=== PATIENT | female | born 1985 | race Caucasian/White ===

== ENCOUNTER 2022-12-28 08:24 | Outpatient (CLI) | payer OTHER, SELFPAY ==
[2022-12-28 15:46] LABS: Basophils Absolute Auto 0.04 K/uL (0.00-0.30); Basophils Percent Auto 0.4 % (0.0-3.0); Eosinophils Absolute Auto 0.29 K/uL (0.00-0.50); Hematocrit 42.6 % (33.0-51.0); Hemoglobin* 14.2 gm/dL (12.0-16.0); Immature Granulocytes Abs Auto 0.04 K/uL (0.00-0.30); Immature Granulocytes Pct Auto 0.4 %; Lymphocytes Absolute Auto 2.93 K/uL (0.90-2.90); Lymphocytes Percent Auto 30.1 % (20-44); Mean Corpuscular HGB Conc 33 gm/dL (32-36); Mean Corpuscular Hemoglobin 30 pg (26-34); Mean Corpuscular Volume 89 fL (80-100); Monocytes Percent Auto 6.2 % (0.0-11.0); Neutrophils Absolute Auto 5.83 K/uL (1.7-7.0); Neutrophils Percent Auto 59.9 % (42.0-72.0); Platelet Count* 432 K/uL (140-440); Red Blood Count 4.78 m/uL (4.00-5.20); White Blood Count* 9.73 K/uL (4.50-11.00)
[2022-12-28 15:56] LABS: Slide Review Reflex No
[2022-12-28 15:58] LABS: Glucose* 88 mg/dL (60-115)
[2022-12-28 15:59] LABS: HCG Qualitative Serum* Negative (Negative)
[2022-12-28 16:02] LABS: C Reactive Protein* < 0.5 mg/dL (0.5-1.0)
[2022-12-28 16:48] LABS: Vitamin B12* 284 pg/mL (243-894)
[2022-12-28 17:12] LABS: Erythrocyte SedimentationRate* 9 mm/hr (2-20)
[2022-12-30 17:14] LABS: Rheumatoid Factor <10 IU/mL (0-14)
[2022-12-30 21:47] LABS: Anti-Nuclear Ab(ANA)IgG ELISA None Detected (None Detected)
== END 2022-12-28 08:25 | disposition home or self-care (01) ==
PROVIDERS: PCP Nurse Practitioner Family; Visit Provider Nurse Practitioner Family
DX: Z00.00 Encounter for general adult medical examination without abnormal findings (principal); R20.2 Paresthesia of skin; M25.50 Pain in unspecified joint; I10 Essential (primary) hypertension; N91.2 Amenorrhea, unspecified; Z13.0 Encounter for screening for diseases of the blood and blood-forming organs and certain disorders involving the immune mechanism
CPT/HCPCS: 82607; 82947; 84443; 84703; 85025; 85651; 86039; 86140; 86431

== ENCOUNTER 2023-02-15 08:43 | Outpatient (CLI) | payer OTHER, SELFPAY ==
[2023-02-15 15:20] LABS: Basophils Absolute Auto 0.05 K/uL (0.00-0.30); Basophils Percent Auto 0.6 % (0.0-3.0); Eosinophils Percent Auto 3.3 % (0.0-7.0); Hematocrit 41.3 % (33.0-51.0); Hemoglobin* 13.7 gm/dL (12.0-16.0); Immature Granulocytes Abs Auto 0.03 K/uL (0.00-0.30); Immature Granulocytes Pct Auto 0.3 %; Lymphocytes Absolute Auto 2.58 K/uL (0.90-2.90); Lymphocytes Percent Auto 28.6 % (20-44); Mean Corpuscular HGB Conc 33 gm/dL (32-36); Mean Corpuscular Hemoglobin 30 pg (26-34); Mean Corpuscular Volume 89 fL (80-100); Monocytes Percent Auto 6.7 % (0.0-11.0); Neutrophils Absolute Auto 5.46 K/uL (1.7-7.0); Neutrophils Percent Auto 60.5 % (42.0-72.0); Platelet Count* 432 K/uL (140-440); RDW Coefficient of Variation % 12.9 % (11.5-15.5); Red Blood Count 4.63 m/uL (4.00-5.20); White Blood Count* 9.02 K/uL (4.50-11.00)
[2023-02-15 15:31] LABS: Chloride* 107 mmol/L (96-114)
[2023-02-15 15:32] LABS: Potassium* 4.5 mmol/L (3.6-5.1); Sodium* 138 mmol/L (135-149)
[2023-02-15 15:34] LABS: Creatinine* 0.8 mg/dL (0.5-1.5); Estimated Glomerular Filt Rate 98 ml/min
[2023-02-15 15:35] LABS: Blood Urea Nitrogen* 12 mg/dL (5-24); Calcium* 9.4 mg/dL (8.4-10.6); Carbon Dioxide* 21 mmol/L (20-32); Glucose* 89 mg/dL (60-115)
[2023-02-15 15:37] LABS: Slide Review Reflex No
[2023-02-15 15:38] LABS: C Reactive Protein* 0.7 mg/dL (0.5-1.0)
[2023-02-15 16:12] LABS: Erythrocyte SedimentationRate* 10 mm/hr (2-20)
[2023-02-15 16:14] LABS: C.Difficile Negative (Negative); CDIFFEPI 027 PRESUMPTIVE NEGATIVE (Negative)
[2023-02-17 16:52] LABS: Immunoglobulin A 166 mg/dL (68-408)
[2023-02-18 11:09] LABS: Tissue Transglutaminase IgA <2 U/mL (0-3)
[2023-02-20 04:39] LABS: Ova and Parasite, Fecal Negative (Negative)
== END 2023-02-15 08:44 | disposition home or self-care (01) ==
PROVIDERS: PCP Nurse Practitioner Family; Visit Provider Nurse Practitioner Family
DX: R19.7 Diarrhea, unspecified (principal)
CPT/HCPCS: 80048; 82784; 85025; 85651; 86140; 86364; 87045; 87046; 87177; 87209; 87427; 87493

== ENCOUNTER 2023-02-25 12:10 | Day surgery (SDC) | payer BC, SELFPAY ==
[2023-02-25] VITALS (24 sets, daily range): BP systolic 106–140; BP diastolic 64–93; PULSE 78–134; RESP 12–24; TEMP 36.6–37.7; O2SAT 88–100
--- NOTE | 2023-02-25 12:42 | CRLHL7_ITS ---
For Patients: As a result of the Century Cures Act, medical imaging exams and procedure reports are released immediately into your electronic medical record. You may view this report before your referring provider. If you have questions, please contact your health care provider. INDICATION: Right lower quadrant and back pain. COMPARISON: None. TECHNIQUE: 2D lama scale and color Doppler images were acquired of the pelvis using a transvaginal approach. FINDINGS: Sonographic images demonstrate a normal size and smooth outer contour of the uterus. The uterus is anteverted in position. The uterus measures 8.4 cm in length by 3.7 cm in AP diameter by 3.9 cm in transverse dimension. The myometrium has uniform echotexture. The endometrial lining measures 7 mm in composite thickness. The right ovary measures 4.6 x 2.7 x 2.7 cm and the left ovary measures 2.5 x 1.9 x 1.9 cm. The ovaries demonstrate normal arterial and venous blood flow on color Doppler analysis. There is a 2.1 x 2.0 x 2.2 cm hypoechoic lesion in the right ovary with lace-like internal echoes and no internal vascularity. This likely represents a hemorrhagic cyst. No free fluid in the cul-de-sac. IMPRESSION: 1. 2.2 cm hemorrhagic cyst in the right ovary. 2. Exam otherwise unremarkable. No evidence of torsion. Dictated by Claritza Gallardo MD @ 02/25/2023 2:23:07 PM (Electronically Signed)
[2023-02-25 12:57] LABS: Lactate* 1.5 mmol/L (0.5-1.9)
[2023-02-25 13:03] LABS: Appearance Urine Slightly Cloudy (Clear); Bilirubin Urine Negative (Negative); Blood Urine Trace-intact (Negative); Color Urine Yellow (Yellow); Glucose Urine Negative (Negative); Ketones Urine 2+ (Negative); Leukocyte Esterase Urine Negative (Negative); Nitrite Urine Negative (Negative); Protein Urine Negative (Negative); Urobilinogen Urine 0.2 (0.2-1.0)
[2023-02-25 13:04] LABS: Ur HCG Qualitative* Negative (Negative)
[2023-02-25 13:14] LABS: Albumin* 4.8 g/dL (3.3-5.0); Chloride* 108 mmol/L (96-114); Sodium* 138 mmol/L (135-149)
[2023-02-25 13:15] LABS: Potassium* 3.8 mmol/L (3.6-5.1)
[2023-02-25 13:15] LABS: Bacteria Urine Moderate; RBC Urine 0-2 (0-2); Squamous Epithelial Cell Urine Moderate (None-Few)
[2023-02-25 13:17] LABS: Alkaline Phosphatase* 58 U/L (40-150); Aspartate Amino Transferase* 19 U/L (12-35); Bilirubin Direct* 0.2 mg/dL (0.0-0.5); Bilirubin Total* 0.4 mg/dL (0.1-1.5); Blood Urea Nitrogen* 7 mg/dL (5-24); Carbon Dioxide* 20 mmol/L (20-32); Creatinine* 0.8 mg/dL (0.5-1.5); Est. Creatinine Clearance* 88.32; Estimated Glomerular Filt Rate 98 ml/min; Total Protein* 8.4 g/dL (6.0-8.3)
[2023-02-25 13:18] LABS: Alanine Aminotransferase* 16 U/L (4-35); Calcium* 9.2 mg/dL (8.4-10.6); Glucose* 93 mg/dL (60-115)
[2023-02-25 13:20] LABS: C Reactive Protein* 0.6 mg/dL (0.5-1.0)
[2023-02-25] MEDS: 0.9 % SODIUM CHLORIDE 1000 ml 1,000 ML IV (13:25)
[2023-02-25] MEDS: MORPHINE 4 MG/ML INJ IVP (13:30)
[2023-02-25] MEDS: ONDANSETRON 2 MG/ML inj 4 MG IVP (13:30)
[2023-02-25] MEDS: KETOROLAC 15 MG/ML inj IVP (13:35)
--- NOTE | 2023-02-25 13:45 | ED.NURSE ---
20G IV in pt L AC infiltrated, unable to flush. IV DC, catheter intact. New IV started in pt L forearm.
--- NOTE | 2023-02-25 14:31 | CRLHL7_ITS ---
For Patients: As a result of the Century Cures Act, medical imaging exams and procedure reports are released immediately into your electronic medical record. You may view this report before your referring provider. If you have questions, please contact your health care provider. INDICATION: Right lower quadrant pain. Back pain.. TECHNIQUE: CT abdomen and pelvis without contrast. COMPARISON: None. FINDINGS: Limited evaluation of the intra-abdominal solid organs without IV contrast. Lower chest: Lung bases appear clear. Heart size within normal limits. Small fluid in the distal esophagus, may be related to reflux, an aspiration risk. Liver: Borderline hepatomegaly. No suspicious masses. Gallbladder and bile ducts: Gallbladder is absent. No significant intra or extrahepatic biliary ductal dilatation. Pancreas: Unremarkable. No mass or inflammation. Spleen: Normal in size. No masses. Adrenal glands: Normal in size. No nodules. Kidneys: Normal in size. No suspicious masses, stones, or hydronephrosis. GI tract: Unremarkable. Normal in caliber. No sign of mass or inflammation. Normal appendix. Vasculature: Abdominal aorta is normal in caliber. Lymph nodes: No lymphadenopathy. Peritoneum/Abdominal Wall: Unremarkable. No sign of mass or infiltration. No free air or significant free fluid. Pelvis: Bilateral adnexal cysts, likely physiologic. Probable dominant follicle in the right ovary. Uterus is unremarkable. Bladder is unremarkable. No pelvic masses. Bones: Unremarkable for age. IMPRESSION: No acute intra-abdominal process identified. Appendix within normal limits. No renal stones identified. Please note that all CT scans at this facility use dose modulation, iterative reconstruction, and/or weight-based dosing when appropriate to reduce radiation dose to as low as reasonably achievable. Dictated by Rebel Melchor MD @ 02/25/2023 3:45:05 PM (Electronically Signed)
[2023-02-25] MEDS: HYDROmorphone 0.5 mg/0.5 ml inj IVP ×3 (14:35→20:14)
[2023-02-25 14:42] LABS: Hemoglobin* 14.1 gm/dL (12.0-16.0); Mean Corpuscular HGB Conc 34 gm/dL (32-36); Mean Corpuscular Hemoglobin 30 pg (26-34); Mean Corpuscular Volume 88 fL (80-100); Platelet Count* 398 K/uL (140-440); Red Blood Count 4.76 m/uL (4.00-5.20); White Blood Count* 13.65 K/uL (4.50-11.00)
[2023-02-25 14:43] LABS: Basophils Percent Auto 0.3 % (0.0-3.0); Eosinophils Percent Auto 1.3 % (0.0-7.0); Immature Granulocytes Pct Auto 2.1 %; Lymphocytes Percent Auto 3.7 % (20-44); Monocytes Percent Auto 9.5 % (0.0-11.0); Neutrophils Percent Auto 83.1 % (42.0-72.0); Slide Review Reflex No
--- NOTE | 2023-02-25 16:31 | ED_ITS ---
HPI - General Adult General Date Seen: 02/25/23 Chief complaint: Abdominal Pain Stated complaint: lower back pain, lower abnormal pain Time Seen by Provider: 02/25/23 12:42 Source: patient Mode of arrival: ambulatory Limitations: no limitations History of Present Illness HPI narrative: Patient is a 37-year-old woman who presents for evaluation of sudden onset of what she rates as severe right low back and abdominal pain. She says the pain started in her back but wraps around to the right low abdomen/pelvis. She has never had pain like this before. She has a history of ovarian cysts and has had surgery to remove those, last about maybe 10 years ago. She is mid cycle, no suspicion of . She is not having any vaginal bleeding. No vaginal discharge or concerns about exposure to STIs. She has no urinary symptoms, no history of kidney stones. She has not had any fever, nausea, vomiting. She had a normal appetite up to this today. She says the pain is sharp and radiates into the vagina. She took some ibuprofen which did not help. Related Data Previous Rx's Medication Instructions Recorded citalopram 10 mg tablet 10 mg PO DAILY 90 days #90 tabs 02/01/23 trazodone 50 mg tablet 50 mg PO QHS PRN insomnia 90 days 02/01/23 #90 tabs docusate sodium 100 mg capsule 100 mg PO BID PRN #100 caps 02/25/23 ibuprofen 600 mg tablet 600 mg PO QID PRN #30 tabs 02/25/23 oxycodone 5 mg tablet 5 mg PO 3XD PRN 4 OR GREATER ON 02/25/23 PAIN SCALE #20 tabs Allergies Allergy/AdvReac Type Severity Reaction Status Date / Time doxycycline Allergy Mild Hives Verified 02/15/23 08:26 Sulfa (Sulfonamide Allergy Verified 02/15/23 08:26 Antibiotics) Review of Systems Status of ROS: Reports: 10 or more systems reviewed and unremarkable except as noted in History and below [facility] Medical History Anemia during ?O99.019 - Anemia complicating , unspecified trimester (ICD-10) Anxiety disorder ?F41.9 - Anxiety disorder, unspecified (ICD-10) Group B 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 ?O99.820 - Streptococcus B carrier state complicating (ICD-10) Hemorrhage of rectum and anus ?K62.5 - Hemorrhage of anus and rectum (ICD-10) Hypertension ?I10 - Essential (primary) hypertension (ICD-10) Irritable bowel syndrome ?K58.9 - Irritable bowel syndrome without diarrhea (ICD-10) Sacrococcygeal disorders, not elsewhere classified ?M53.3 - Sacrococcygeal disorders, not elsewhere classified (ICD-10) Surgical History History of colon surgery ?Z98.890 - Other specified postprocedural states (ICD-10) History of colonoscopy ?Z98.890 - Other specified postprocedural states (ICD-10) History of esophagogastroduodenoscopy (EGD) ?Z98.890 - Other specified postprocedural states (ICD-10) History of hernia repair ?Z98.890 - Other specified postprocedural states (ICD-10) ?Z87.19 - Personal history of other diseases of the digestive system (ICD-10) History of ovarian cystectomy ?Z98.890 - Other specified postprocedural states (ICD-10) ?Z87.42 - Personal history of other diseases of the female genital tract (ICD-10) Status post cholecystectomy ?Z90.49 - Acquired absence of other specified parts of digestive tract (ICD- 10) Family History Mother Breast cancer Hyperlipidemia Mental disorder Diabetes Aunt Breast cancer Myocardial infarction Paternal Grandmother Breast cancer Heart disease Maternal Grandmother Heart disease High blood pressure Myocardial infarction Maternal Grandfather Drug abuse Heart disease Hyperlipidemia High blood pressure Paternal Grandfather Heart disease Father Gout Social History Smoking Status: Never smoker Do you use any of these nicotine containing products: None Second hand tobacco smoke exposure: No How often do you have a drink containing alcohol: never How often do you have six or more drinks on one occasion: Never AUDIT-C Alcohol total score: 0 Non-prescribed substance use: denies use Little interest or pleasure in doing things: not at all Feeling down, depressed, or hopeless: not at all service: No Exam Narrative: Exam Narrative: Vital signs as noted above. In general, an alert, nontoxic woman. She looks uncomfortable. Head: Normocephalic, atraumatic. Eyes: Pupils are equal reactive. Extraocular movements are full. Conjunctivae are normal. ENT: Mucous membranes are moist. Throat is normal. Neck: Supple without lymphadenopathy. Heart: Regular rate and rhythm. No murmur or rub. Lungs: Clear bilaterally. No increased work of breathing, crackles or wheezes. No CVA tenderness. Back: She does have some muscular tenderness in the right low back, she says palpation here makes her pain worse. Abdomen: Soft and nondistended. She has some pain palpation in the right lower quadrant and right pelvis. She has some voluntary guarding but no rebound and no true guarding. Extremities: Well perfused. No edema. No calf tenderness. Pulses intact. Neurologic: Patient is alert and oriented to person and place. Speech is fluent. Face is symmetric. Moves all extremities equally. Affect: Normal. Skin: Warm and dry. Well perfused. Const: Vital Signs, click to edit/add: Vital Signs - 24 hr 02/25/23 12:18 02/25/23 13:47 02/25/23 14:45 Temperature 99 F Pulse Rate [Pulse Oximeter] 134 H 112 H 106 H Respiratory Rate 24 Blood Pressure [Le ft Upper Arm] 123/80 Pulse Oximetry 100 97 98 Oxygen Delivery Me thod Room Air Room Air Room Air 02/25/23 15:36 02/25/23 16:26 Temperature Pulse Rate [Pulse Oximeter] 105 H 104 H Respiratory Rate 20 18 Blood Pressure [Le ft Upper Arm] 126/86 127/83 Pulse Oximetry 100 Oxygen Delivery Me thod Room Air Room Air Documenting provider has reviewed patient's vital signs: yes Course Course Hospital Course: Initially, we placed an IV, she had Toradol, Zofran, morphine and normal saline. I ordered labs to include a CBC, metabolic panel, UA, UPT, LFTs, CRP, lactate. Her white blood cell count is mildly elevated at 13.6, hemoglobin is 14.1. Her test is negative, urinalysis is unremarkable. Metabolic panel and LFTs are unremarkable and lactate is 1.5. CRP is 0.6. I started with a pelvic ultrasound which shows likely a hemorrhagic cyst on the right ovary measuring 2.2 cm. The ovary measures 4.6 x 2.7 x 2.7, and does show good flow. I did do a CT scan without contrast rule out kidney stone or a process such as volvulus, obstruction, unusual appendicitis, or other process to explain her pain. This is read by Radiology as negative. She did not have good pain relief with the morphine and Toradol and did go on to have Dilaudid. She says the Dilaudid covers up the pain and she is more comfortable but she can tell that as soon as it wears off the pain is going to be back. In fact, she had recurrence of her pain and required more Dilaudid. I do not have an explanation for her pain at this point. She has this tenderness in her back and it is possible her symptoms could be related perhaps to muscle spasm or herniated disc, though they are atypical. I do not think the hemorrhagic cyst in of itself is an explanation, but the presence of the cyst makes me somewhat concerned we could be missing a torsion despite the blood flow seen on ultrasound. I did consult Dr. Sherrie Ghotra, who is kind enough to come see her as well and likely plans to take her for laparoscopic evaluation of the ovary. Vital Signs Vital signs: Initial Vital Signs Temperature 99 F 02/25/23 12:18 Temperature Source Temporal Artery Scan 02/25/23 12:18 Pulse Rate 134 H 02/25/23 12:18 Pulse Rhythm Regular 02/25/23 12:18 Respiratory Rate 24 02/25/23 12:18 Blood Pressure 123/80 02/25/23 12:18 Blood Pressure Mean 94 02/25/23 12:18 Blood Pressure Position Sitting 02/25/23 12:18 Pulse Oximetry 100 02/25/23 12:18 Oxygen Delivery Method Room Air 02/25/23 12:18 Vital Signs Temperature 99 F 02/25/23 12:18 Pulse Rate 134 H 02/25/23 12:18 Respiratory Rate 24 02/25/23 12:18 Blood Pressure 123/80 02/25/23 12:18 Pulse Oximetry 100 02/25/23 12:18 Oxygen Delivery Method Room Air 02/25/23 12:18 Temperature 98.5 F 02/25/23 22:25 Pulse Rate 78 02/25/23 22:25 Respiratory Rate 16 02/25/23 22:25 Blood Pressure 107/64 02/25/23 22:25 Pulse Oximetry 98 02/25/23 22:25 Oxygen Delivery Method Room Air 02/25/23 22:25 Oxygen Flow Rate 1 02/25/23 20:36 Medical Decision Making Lab Data Labs: Lab Results 02/25/23 02/25/23 02/25/23 Range/Units 12:34 12:50 17:36 WBC 13.65 H (4.50-11.00) K/uL RBC 4.76 (4.00-5.20) m/uL Hgb 14.1 (12.0-16.0) gm/dL Hct 42.0 (33.0-51.0) % MCV 88 (80-100) fL MCH 30 (26-34) pg MCHC 34 (32-36) gm/dL RDW Coeff of Kaushik 13.0 (11.5-15.5) % Plt Count 398 (140-440) K/uL Neut % (Auto) 83.1 H (42.0-72.0) % Lymph % (Auto) 3.7 L (20-44) % [place] % (Auto) 9.5 (0.0-11.0) % Eos % (Auto) 1.3 (0.0-7.0) % Baso % (Auto) 0.3 (0.0-3.0) % Neut # (Auto) 11.30 H (1.7-7.0) K/uL Lymph # (Auto) 0.50 L (0.90-2.90) K/uL [place] # (Auto) 1.30 H (0.00-0.90) K/UL Eos # (Auto) 0.20 (0.00-0.50) K/uL Baso # (Auto) 0.00 (0.00-0.30) K/uL Sodium 138 (135-149) mmol/L Potassium 3.8 (3.6-5.1) mmol/L Chloride 108 (96-114) mmol/L Carbon Dioxide 20 (20-32) mmol/L BUN 7 (5-24) mg/dL Creatinine 0.8 (0.5-1.5) mg/dL Estimated Creat Clear 88.32 Estimated GFR 98 ml/min Glucose 93 (60-115) mg/dL Lactate 1.5 (0.5-1.9) mmol/L Calcium 9.2 (8.4-10.6) mg/dL Total Bilirubin 0.4 (0.1-1.5) mg/dL Direct Bilirubin 0.2 (0.0-0.5) mg/dL AST 19 (12-35) U/L ALT 16 (4-35) U/L Alkaline Phosphatase 58 (40-150) U/L C-Reactive Protein 0.6 (0.5-1.0) mg/dL Total Protein 8.4 H (6.0-8.3) g/dL Albumin 4.8 (3.3-5.0) g/dL Urine Color Yellow (Yellow) Urine Appearance Slightly Cloudy A (Clear) Urine pH 7.0 (5.0-8.5) Ur Specific [place] 1.020 (1.000-1.030) Urine Protein Negative (Negative) Urine Glucose (UA) Negative (Negative) Urine Ketones 2+ A (Negative) Urine Blood Trace-intact A (Negative) Urine Nitrite Negative (Negative) Urine Bilirubin Negative (Negative) Urine Urobilinogen 0.2 (0.2-1.0) Ur Leukocyte Esterase Negative (Negative) Urine RBC 0-2 (0-2) Urine WBC 2-5 (0-5) Ur Squamous Epith Cells Moderate A (None-Few) Urine Bacteria Moderate A (None) Urine HCG, Qual Negative (Negative) Blood Type B Positive Antibody Screen NEGATIVE Discharge Plan Discharge Clinical Impression: Abdominal pain, RLQ, Acute right-sided low back pain Patient Disposition: XFER to OR Condition: Stable
--- NOTE | 2023-02-25 17:05 | P.GYNCN_ITS ---
QUALITY ASSURANCE CLERK - CN: HPI Data of Consult Time Seen by Provider: 17:05 Date Seen: 02/25/23 Consult date: 02/25/23 Requesting Physician: Yesenia Birmingham MD Primary Care Provider: Veronica Morgan APRN, RELIEF MATE Consult Narrative Reason for consult: abdominal pain Narrative: HPI: Antonella Ramirez is a 37 year old female who presented to the emergency department with acute right lower back pain with radiation to the right lower quadrant. Antonella describes it as sharp like someone was ?stabbing me?. She states she was driving in her car and the pain occurred. She has received Toradol, morphine and Dilaudid in the emergency department and that makes the pain somewhat manageable. She does not note anything else that has made the pain better. She has had some lightheadedness today after the pain started but no other associated symptoms. She denies feeling faint, nausea/vomiting, dysuria, urinary urgency or urinary frequency. She denies vaginal bleeding and abnormal vaginal discharge. No changes in bowel or bladder habits. She denies fever, headache, chest pain and shortness of breath. Lab results are significant for white blood cell count that mildly elevated at 13.65. Lactate is normal 1.5. All of her electrolytes were normal. Kidney function liver function tests appear normal. Her urinalysis showed moderate epithelial cells with moderate bacteria, 2+ ketones and trace intact blood. Pelvic ultrasound showed uterus measuring 8.4 x 3.7 x 3.9 cm. Myometrium is uniform. Endometrium measures 7 mm. Right ovary measures 4.6 x 2.7 x 2.7 cm with a 2.1 x 2.0 x 2.2 hypoechoic cyst consistent with a hemorrhagic cyst. The left ovary measures 2.5 x 1.9 x 1.9 cm. The ovaries demonstrate normal arterial venous blood flow on color Doppler analysis. A CT scan of the abdomen and pelvis was performed which showed no acute intra-abdominal process identified. The appendix appeared nor within normal limits. No renal stones identified. The only thing they noted was a probable dominant follicle right ovary. Because the patient's white blood cell count is slightly elevated and her pain has not been completely alleviated with IV pain medication I was asked to consult for possible ovarian torsion. I reviewed a surgical consent for diagnostic laparoscopy, possible ovarian cystectomy possible oophorectomy. All of her questions were answered. Her spouse was also contacted. GYNECOLOGIC/OBSTETRIC HISTORY: Cis-gender, heterosexual woman. Delivery history: 1. 12/31/2015. , term, female, [place]. No complications. LMP 02/03/2023 Regular menstrual cycles approximately every 4 weeks. Although skipped a cycle in November 2022 No history of STI No history of PID Positive history of ?ovarian cysts had a laparoscopy performed by Dr. Vijaya Shepherd ?approximately 10 years ago? No history of abnormal Pap smear. Not using contraception currently. Planning to try to conceive sometime this year. Her past medical, surgical, social and family histories were reviewed in her electronic medical record. cc:: CC: [facility] Medical History Anemia during ?O99.019 - Anemia complicating , unspecified trimester (ICD-10) Anxiety disorder ?F41.9 - Anxiety disorder, unspecified (ICD-10) Group B 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 ?O99.820 - Streptococcus B carrier state complicating (ICD-10) Hemorrhage of rectum and anus ?K62.5 - Hemorrhage of anus and rectum (ICD-10) Hypertension ?I10 - Essential (primary) hypertension (ICD-10) Irritable bowel syndrome ?K58.9 - Irritable bowel syndrome without diarrhea (ICD-10) Sacrococcygeal disorders, not elsewhere classified ?M53.3 - Sacrococcygeal disorders, not elsewhere classified (ICD-10) Surgical History History of colon surgery ?Z98.890 - Other specified postprocedural states (ICD-10) History of colonoscopy ?Z98.890 - Other specified postprocedural states (ICD-10) History of esophagogastroduodenoscopy (EGD) ?Z98.890 - Other specified postprocedural states (ICD-10) History of hernia repair ?Z98.890 - Other specified postprocedural states (ICD-10) ?Z87.19 - Personal history of other diseases of the digestive system (ICD-10) History of ovarian cystectomy ?Z98.890 - Other specified postprocedural states (ICD-10) ?Z87.42 - Personal history of other diseases of the female genital tract (ICD-10) Status post cholecystectomy ?Z90.49 - Acquired absence of other specified parts of digestive tract (ICD- 10) Family History Mother Breast cancer Hyperlipidemia Mental disorder Diabetes Aunt Breast cancer Myocardial infarction Paternal Grandmother Breast cancer Heart disease Maternal Grandmother Heart disease High blood pressure Myocardial infarction Maternal Grandfather Drug abuse Heart disease Hyperlipidemia High blood pressure Paternal Grandfather Heart disease Father Gout Social History Smoking Status: Never smoker Do you use any of these nicotine containing products: None Second hand tobacco smoke exposure: No How often do you have a drink containing alcohol: never How often do you have six or more drinks on one occasion: Never AUDIT-C Alcohol total score: 0 Non-prescribed substance use: denies use Little interest or pleasure in doing things: not at all Feeling down, depressed, or hopeless: not at all service: No Meds Home Medications and Allergies Allergies Allergy/AdvReac Type Severity Reaction Status Date / Time doxycycline Allergy Mild Hives Verified 02/15/23 08:26 Sulfa (Sulfonamide Allergy Verified 02/15/23 08:26 Antibiotics) QUALITY ASSURANCE CLERK - Exam Physical Exam: Vital signs: Temp Pulse Resp BP Pulse Ox O2 Del Method 99 F 104 H 18 140/93 H 96 Room Air 02/25/23 12:18 02/25/23 17:04 02/25/23 17:04 02/25/23 17:04 02/25/23 17:04 02/25/23 17:04 Narrative: GENERAL APPEARANCE: Pleasant, , well-groomed woman in no acute distress. VITAL SIGNS: as noted in nursing notes HEAD: Pupils are equal, round and reactive to light. No oral-pharyngeal erythema or exudate. Normocephalic, atraumatic. NECK: Normal range of motion. Supple and nontender. THYROID: no masses, nodularity, tenderness or enlargement. LUNGS: Clear to auscultation bilaterally without wheezes, rales or rhonchi. HEART: Regular rate and rhythm with normal S1 and S2. No gallop, rub or murmur. ABDOMEN: Soft, exquisite tenderness in the right lower quadrant to moderate palpation. No guarding or rebound but the exam was performed after the patient had received Toradol and IV narcotics. GENITOURINARY: Deferred to the operating room. EXTREMITIES: No cyanosis, clubbing, or edema. No varicosities. NEUROLOGIC: Normal gait and balance. Normal deep tendon reflexes at bilateral patella 2+/2, equal without clonus. PSYCHIATRIC: alert and oriented x3. Normal speech pattern, eye contact and affect. SKIN: Warm, dry, and well perfused. Good turgor. No lesions, nodules or rashes. QUALITY ASSURANCE CLERK - Results Labs Labs: Short CBC 02/25/23 Range/Units 12:34 WBC 13.65 H (4.50-11.00) K/uL Hgb 14.1 (12.0-16.0) gm/dL Hct 42.0 (33.0-51.0) % Plt Count 398 (140-440) K/uL BMP 02/25/23 12:34 Sodium 138 Potassium 3.8 Chloride 108 Carbon Dioxide 20 BUN 7 Creatinine 0.8 Glucose 93 Calcium 9.2 Liver Function 02/25/23 Range/Units 12:34 Total Bilirubin 0.4 (0.1-1.5) mg/dL Direct Bilirubin 0.2 (0.0-0.5) mg/dL AST 19 (12-35) U/L ALT 16 (4-35) U/L Alkaline Phosphatase 58 (40-150) U/L Albumin 4.8 (3.3-5.0) g/dL Urine 02/25/23 Range/Units 12:50 Urine Color Yellow (Yellow) Urine Appearance Slightly Cloudy A (Clear) Urine pH 7.0 (5.0-8.5) Ur Specific [place] 1.020 (1.000-1.030) Urine Protein Negative (Negative) Urine Glucose (UA) Negative (Negative) Assessment and Plan Assessment and plan (1) Right lower quadrant pain: Status: Acute Assessment and Plan: 1. Possible ovarian torsion. With elevated white blood cell count and 2 cm ovarian cyst. No other pelvic or abdominal abnormality identified to explain the patient's pain. 2. Surgical consent reviewed and signed for diagnostic laparoscopy, possible ovarian cystectomy, possible oophorectomy. 3. Patient will follow-up in approximately 2 weeks for postop check. 4. Patient should be off of work for 1 week.
--- NOTE | 2023-02-25 17:23 | PM.PROC ---
Procedure Note Time Seen by Provider: 17:23 Date Seen: 02/25/23 Date of procedure: 02/25/23 Will [facility] bill your pro fee for this procedure?: Yes Procedure: Preoperative diagnosis: 37-year-old with acute right lower quadrant pain. Postoperative diagnosis: Same. 2 cm, ovulation cyst on the right ovary. No torsion or cyst rupture. Procedure: Diagnostic laparoscopy. Right ovarian cystectomy. Anesthesia: General endotracheal, local Surgeon: Clarisa Alvarado MD Meter/Relay Technician: Not applicable EBL: 30 mL Urine output: 400 mL clear urine IV fluid: 700 ml Specimen: Right ovarian cyst wall to pathology Findings: On exam under anesthesia: The uterus was anteverted, less than 8 week size, mobile, without masses or nodularity palpable. Adnexa were without mass or fullness bilaterally. The uterus sounded to 8 cm. On laparoscopy: The uterus, bilateral fallopian tubes and left ovary were normal. Right ovary had a 2 cm, corpus luteum cyst, not abnormal. Appendix normal. No etiology was identified for the patient's severe pain. Procedure: Antonella was taken to the operating room where general anesthetic was found to be adequate. She was placed in the dorsal lithotomy position and an exam under anesthesia was performed with findings stated above. She was then prepped and draped in a normal sterile manner. A Sue catheter was then placed. A bivalve speculum was then placed in the vaginal canal to visualize the cervix. The anterior lip of the cervix was grasped with an a long Allis clamp. The cervix was dilated to Hegar 6. Uterus was sounded to [] cm. A [employer] uterine manipulator was then placed. Attention was then turned to performing the laparoscopic portion of the procedure. All incisions were injected with 0.50 % Marcaine prior to incision. A vertical 5 mm infraumbilical, incision, was made and a 5 mm trocar placed under direct visualization with the laparoscope. The abdomen was then insufflated with carbon dioxide gas to a pressure of 15 mm of mercury. 2 bilateral lower quadrant trocars were then placed under direct visualization. Both were placed approximately 3-4 finger breaths medial to the ischial crests. All trocars were 5 mm in diameter. A diagnostic laparoscopy was then performed with findings stated above. A sliding grasper was advanced into the right lower quadrant trocar and the right fallopian tube breasts and tented up. The [employer] pencil with the spatula attachment was used to make an incision over the right ovarian cyst. The cyst wall was grasped with a sliding grasper, removed and sent to pathology. The base of the cyst was cauterized with the [employer] pencil. The pelvis was irrigated and the base of the cyst noted to be hemostatic. All trocars removed under direct visualization. The CO2 gas was allowed to escape the infraumbilical port prior to its removal. All incisions were reapproximated using 4-0 Monocryl in a running subcuticular manner. Exofin skin adhesive was then applied. The uterine manipulator and Sue catheter were removed. The patient tolerated this procedure well. Sponge, lap and instrument counts were correct x2 at the end of the procedure and the patient was taken to the recovery area in stable condition. The patient did not require prophylactic antibiotics for this procedure. Disposition: observation
[2023-02-25] MEDS: BUPIVACAINE 0.5% 30 ML INJECTION (18:52)
--- NOTE | 2023-02-25 19:30 | P.ANES_ITS ---
Anesthesia Charges Start Date/Time Anesthesia Start Date: 02/25/23 Anesthesia Start Time: 17:38 Stop Date/Time Anesthesia Stop Date: 02/25/23 Anesthesia Stop Time: 19:17 Summary Emergency: [employer]IVE G[employer]ER
--- NOTE | 2023-02-25 19:39 | SUR.PHASEI ---
800 IV fluids (LR) infused total. 50 of those IV fluids were infused in PACU 1.
[2023-02-25] MEDS: ACETAMINOPHEN 500 MG TABLET 1000 MG PO (21:50)
[2023-02-25] MEDS: OXYCODONE 5 MG TABLET PO (21:51)
== END 2023-02-25 22:20 | disposition home or self-care (01) ==
LOC: ED 17:10 → OR 17:31 → OB 20:03
PROVIDERS: Obstetrics & Gynecology; Emergency Provider Emergency Medicine; PCP Nurse Practitioner Family; Visit Provider Surgery
PROC: (CPT 58662; principal; 2023-02-25 17:30)
DX: N83.201 Unspecified ovarian cyst, right side (principal); R10.31 Right lower quadrant pain; M54.50 Low back pain, unspecified
CPT/HCPCS: 58662; 00840; 36415; 74176; 76830; 80048; 80076; 81001; 81025; 83605; 85025; 86140; 86850; 86900; 86901; 87086; 88305; 93976; 99140; 99284; A9270; J0330; J1100; J1170; J1885; J2250; J2270; J2405; J2704; J3010; J3490; J7030

== ENCOUNTER 2023-08-20 07:17 | Outpatient (CLI) | payer BC, SELFPAY ==
--- NOTE | 2023-08-20 07:15 | CRLHL7_ITS ---
For Patients: As a result of the Cures Act, medical imaging exams and procedure reports are released immediately into your electronic medical record. You may view this report before your referring provider. If you have questions, please contact your health care provider. INDICATION: First trimester scan, establish dates. COMPARISON: None. TECHNIQUE: Real-time lama-scale imaging of the pelvis was performed. FINDINGS: Sonographic imaging demonstrates a single living intrauterine gestation. The embryo demonstrates a regular cardiac rate measuring 159 beats per minute. The embryo`s crown-rump length measurement of 3.4 cm corresponds to a gestational age of 10 weeks 2 days with a sonographic due date of 03/15/2024. There is a normal-appearing yolk sac. There are no gross abnormalities noted within the embryo at this early state of development. The gestational sac has a normal appearance. There is a 2.8 x 2.9 x 1.4 cm perigestational hemorrhage. The amount of fluid within the sac appears appropriate for gestational age. The cervix is closed. The myometrium appears normal. The ovaries are of normal size. Corpus luteal cyst left ovary. There are no suspicious fluid collections noted in the cul-de-sac. IMPRESSION: Single living intrauterine sonographic gestational age 10 weeks 2 days and sonographic due date 03/15/2024. Right-sided subchorionic hemorrhage measuring 2.8 x 2.9 x 1.4 cm. Dictated by Rom Peralta MD @ 08/20/2023 9:25:58 AM (Electronically Signed)
== END 2023-08-20 07:18 | disposition home or self-care (01) ==
LOC: US 07:17
PROVIDERS: PCP Nurse Practitioner Family; Visit Provider Physician Assistant
DX: Z34.91 Encounter for supervision of normal pregnancy, unspecified, first trimester (principal); O20.9 Hemorrhage in early pregnancy, unspecified; Z3A.10 10 weeks gestation of pregnancy
CPT/HCPCS: 76801; 86592; 86703; 86704; 86706; 86762; 86787; 86803; 86850; 86900; 86901; 87086; 87340; 87491; 87591

== ENCOUNTER 2023-12-24 15:48 | Outpatient (CLI) | payer BC, SELFPAY ==
--- NOTE | 2023-12-24 16:00 | US_ITS ---
Patient: MARIA DE JESUS ZAPATA Facility:?[facility] R[facility] Patient ID:?[id number] Site Patient ID:?[id number]. Site :?1985 Study:?US-OB Pelvis growth check-12/24/2023 4:41:59 PM Ordering Physician:ASHLEY Final Report: INDICATION: Twenty-eight week 0 day gestation. Check growth. Advanced maternal age Technique : Multiple transabdominal grayscale, color and M-mode Doppler images obtained. FINDINGS: There is a bolton gestation in vertex presentation. Amniotic fluid is normal with SDP 4.2 cm. activity demonstrated. heart rate 129 beats per minute. Cervix was not seen. Placenta is posterior. BIOMETRY DATA: BPD is 7.0 cm 28 weeks 1 days. Head circumference is 26.9 cm 29 weeks 2 days. Abdominal circumference is 24.3 cm 28 weeks 4 days. Femur length is 5.5 cm 29 weeks 1 days. Head/abdomen ratio is 1.1. Estimated weight is 1286 grams. Percentile 69%. IMPRESSION: 1. Single viable intrauterine . 2. Measurements are consistent with clinical dates. Dictated by Renan Gale MD @ 12/25/2023 9:02:29 AM Signed by:?Renan Gale MD @12/25/2023 9:02:29 AM (Electronic Signature)
== END 2023-12-24 15:49 | disposition home or self-care (01) ==
LOC: US 15:48
PROVIDERS: PCP Nurse Practitioner Family; Visit Provider Obstetrics & Gynecology
DX: O09.523 Supervision of elderly multigravida, third trimester (principal); Z3A.28 28 weeks gestation of pregnancy
CPT/HCPCS: 76816; 86592

== ENCOUNTER 2024-01-21 08:59 | Outpatient (CLI) | payer BC, SELFPAY ==
--- NOTE | 2024-01-21 09:15 | US_ITS ---
Patient: MARIA DE JESUS ZAPATA Facility:?[facility] Patient ID:?[id number] Site Patient ID:?[id number]. Site :?1985 Study:?US-OB Pelvis OB F/U-01/21/2024 9:47:07 AM Ordering Physician:Vijaya Saleh Final Report: INDICATION: Advanced maternal age, follow-up growth. CONOR by LMP: 03/17/2024. Gestational age: 32 weeks 0 days. COMPARISON: 12/24/2023. TECHNIQUE: Transabdominal obstetrical ultrasound. FINDINGS: Gestation: Single. Cervix: Visualized, 4.2 cm. positioning: Vertex. Amniotic fluid: 4.0 cm SDP. DOPPLERS: heart rate: 154 bpm. BIOMETRY: BPD: 8.0 cm, 32 weeks 2 days, 49.8%. HC: 30.6 cm, 34 weeks 1 day, 70.2%. AC: 28.5 cm, 32 weeks 4 days, 64.6%. FL: 6.5 cm, 33 weeks 3 days, 76.6%. FL/AC Ratio: 22.8%. HC/AC ratio: 1.07. EFW: 2085 grams, 4 lbs. 10 oz. age by this ultrasound: 33 weeks 1 day. CONOR by this US: 03/09/2024. Percentile by CONOR: 70.3%. IMPRESSION: Measurements are consistent with dates. Good interval growth since the prior exam. Renan Gale M.D. Body/Diagnostic Radiologist [email or web address] D& Transcribed: 3:38 p.m. SP/Dictated by: Renan Gale MD @ 01/21/2024 3:07:00 PM Signed by:?Renan Gale MD @01/21/2024 3:44:44 PM (Electronic Signature)
== END 2024-01-21 09:00 | disposition home or self-care (01) ==
LOC: US 08:59
PROVIDERS: PCP Nurse Practitioner Family; Visit Provider Obstetrics & Gynecology
DX: O09.523 Supervision of elderly multigravida, third trimester (principal); Z3A.32 32 weeks gestation of pregnancy
CPT/HCPCS: 76816

== ENCOUNTER 2024-02-10 18:37 | Outpatient (CLI) | payer BC, SELFPAY ==
--- OUTSIDE RECORDS SUMMARY | 2024-02-10 18:39 | XMS_ITS | Encounter Summary ---
Author Name Unknown Organization [facility] Address [address] [facility] [place] [address] Care Team Providers Care Telemetry Nurse Name Role Phone Veronica Morgan NP Primary Care Provider + [phone] Reason for Visit * Diagnostic Imaging Ultrasound (Routine) - Pending Review Specialty Diagnoses / Procedures Referred By Contac t Referred To Contact Radiology. Diagnoses Encounter for follow-up ultrasound of anatomy Procedures [facility] US Comprehensive Single F/U Jalyn Haywood MD [address] [place] [address] Referral ID Status Reason Start Date Expiration Date V isits Requested Visits Authorized [id number] Pending Review 11/07/2023 11/06/2024 1 1 Encounter Details Date Type Department Care Team (Latest Contact Info) Description 11/28/2023 8:00 AM DAIRY QUALITY ASSURANCE OFFICER Ancillary Procedure [facility] [address] [place] [address] [phone] Jalyn Haywood MD [address] [place] [address] Encounter for follow-up ultrasound of anatomy Social History Tobacco Use Types Packs/Day Years Used Date Smoking Tobacco: Never Comments:no second hand smok e Alcohol Use Standard Drinks/Week Comments No 0 (1 standard drink = 0.6 oz pur e alcohol) Adolescent Education Answer Date Record ed Getting School Help Needed Not on file 11/01 Estimated Date of Delivery Comme nts Yes 03/17/2024 Based on last me nstrual period of 06/11/2023 Sex and Gender Information Value Date Recorded Sex Assigned at Not on file Gender Identity Not on file Sexual Orientation Not on file documented as of this encounter Plan of Treatment Not on file documented as of this encounter Procedures Procedure Name Priority Date/Time Associated Diagnosis Comments [facility] US COMPREHENSIVE SINGLE F/U Routine 11/28/2023 8:28 AM DAIRY QUALITY ASSURANCE OFFICER Encounter for follow-up ultrasound of anatomy documented in this encounter Results * [facility] US Comprehensive Single F/U (11/28/2023 8:28 AM DAIRY QUALITY ASSURANCE OFFICER) Anatomical Region Laterality Modality Ultrasound 11/28/2023 7:59 AM DAIRY QUALITY ASSURANCE OFFICER Impressions 11/28/2023 11:14 AM DAIRY QUALITY ASSURANCE OFFICER IMPRESSION ----- 1) Spangler intrauterine at 24w 2d gestational age. 2) None of the anomalies commonly detected by ultrasound were evident in the anatomic survey described above. The anatomy that was previously sub-optimally visualized was visualized today and appeared normal. 3) Growth parameters and estimated weight were consistent with an appropriate for gestation age pattern of growth. 4) The amniotic fluid volume appeared normal. Narrative 11/28/2023 11:14 AM DAIRY QUALITY ASSURANCE OFFICER ?Comp Follow Up ----- Pat. Name: MARIA DE JESUS RAMIREZ ? Study Date: ??11/28/2023 7:59am Pat. NO: ??[id number] ?Referring ??MD: NELLI PAK Site: ??[facility] ? Special Education Director: ??Aparna Osborn [facility] : ??1985 ?Age: ?? 37 ----- INDICATION ----- Advanced Maternal Age Possible Chronic hypertension Low-Risk NIPT METHOD ----- Transabdominal ultrasound examination. View: Sufficient ----- Spangler . Number of fetuses: 1 DATING ----- ? Date ?Details ?Gest. age ?CONOR LMP ?06/11/2023 ? 24 w + 2 d ? 03/17/2024 Prior assessment ? 08/20/2023 ? GA: 10 w + 2 d ? 24 w + 4 d ? 03/15/2024 U/S ? 11/28/2023 ?based upon AC, BPD, Femur, HC ? 24 w + 1 d ? 03/18/2024 Assigned dating ?Dating performed on 11/07/2023, based on the LMP ? 24 w + 2 d ? 03/17/2024 GENERAL EVALUATION ----- Cardiac activity present. FHR 151 bpm. movements present. Presentation breech. Placenta Posterior, No Previa, > 2 cm from internal os. Umbilical cord 3 vessel cord. Amniotic fluid Amount of AF: normal. MVP 4.8 cm. BIOMETRY ----- Main Biometry: BPD ?57.2 ?mm ? 23w 4d ?Chante AGUIRRE ?81.5 ?mm ? 24w 4d ?Chiki ?222.4 ?mm ?24w 2d ?Hadlock Cerebellum tr ?25.4 ? mm ?23w 3d ?Nicolaides AC ?193.3 ?mm ?24w 0d ?33% ?Hadlock Femur ?45.0 ? mm ?24w 6d ?Hadlock Weight Calculation: EFW ? 686 ? g ? 43% ?Hadlock EFW (lb,oz) ? 1 lb 8 ?oz EFW by ?Hadlock ([id number]) Head / Face / Neck Biometry: Vinyl Dipper ? 4.0 ? mm CM ?5.2 ? mm ANATOMY ----- The following structures appear normal: Head / Neck ? Cranium. Head size. Head shape. Lateral ventricles. Midline falx. Cavum septi pellucidi. Cerebellum. Cisterna magna. Thalami. Face ? Lips. Profile. Nose. Lens. Heart / Thorax ?4-chamber view. RVOT view. Bicaval view. Superior vena cava. Inferior vena cava. 0-gspfwl-lhlnagw view. ? Diaphragm. Abdomen ? Stomach. Kidneys. Bladder. Spine ?Cervical spine. Thoracic spine. Lumbar spine. Sacral spine. The following structures were documented previously: Heart / Thorax ?LVOT view. Gender: female. MATERNAL STRUCTURES ----- Cervix ?Suboptimal Right Ovary ?Not examined Left Ovary ?Not examined RECOMMENDATION ----- We discussed the findings on today's ultrasound with the patient. Serial ultrasounds (every 4 weeks) are recommended to monitor growth beginning at 28 weeks gestation. We presume the follow up ultrasounds will be performed in your office. Return to primary provider for continued care. Thank you for the opportunity to participate in the care of this patient. If you have questions regarding today's evaluation or if we can be of further service, please contact the [facility]. anomalies may be present but not detected Procedure Note Jalyn Haywood MD - 11/28/2023 Comp Follow Up ----- Pat. Name: MARIA DE JESUS RAMIREZ Study Date: 11/28/2023 7:59am Pat. NO: [id number] Referring MD: NELLI PAK Site: [facility] Special Education Director: Aparna Osborn RDMS : 1985 Age: 37 ----- INDICATION ----- Advanced Maternal Age Possible Chronic hypertension Low-Risk NIPT METHOD ----- Transabdominal ultrasound examination. View: Sufficient ----- Spangler . Number of fetuses: 1 DATING ----- DateDetailsGest. age CONOR LMP w + 2 d 03/17/2024 Prior assessment 08/20/2023 GA: 10 w +2 d24 w + 4 d 03/15/2024 U/S 11/28/2023ased upon AC, BPD, Femur, HC24 w + 1 d 03/18/2024 Assigned dating Dating performed on 11/07/2023, based onthe LMP 24 w +2 d 03/17/2024 GENERAL EVALUATION ----- Cardiac activity present. FHR 151 bpm. movements present. Presentation breech. Placenta Posterior, No Previa, > 2 cm from internal os. Umbilical cord 3 vessel cord. Amniotic fluid Amount of AF: normal. MVP 4.8 cm. BIOMETRY ----- Main Biometry: BPD 57.2 mm23w 4d Hadlock OFD 81.5 mm24w 4d Nicolaides HC 222.4 mm24w 2d Hadlock Cerebellum tr 25.4 mm23w 3d Nicolaides AC 193.3 mm24w 0d 33% Hadlock Femur 45.0 mm24w 6d Hadlock Weight Calculation: EFW 686 g43% Hadlock EFW (lb,oz) 1 lb 8 oz EFW by Hadlock ([id number]) Head / Face / Neck Biometry: Vinyl Dipper 4.0 mm CM 5.2 mm ANATOMY ----- The following structures appear normal: Head / Neck Cranium. Head size. Head shape.Lateral ventricles. Midline falx. Cavum septi pellucidi. Cerebellum.Cisterna magna. Thalami. Face Lips. Profile. Nose. Lens. Heart / Thorax 4-chamber view. RVOT view. Bicavalview. Superior vena cava. Inferior vena cava. 9-iiphlb-gasntrh view. Diaphragm. Abdomen Stomach. Kidneys. Bladder. Spine Cervical spine. Thoracic spine.Lumbar spine. Sacral spine. The following structures were documented previously: Heart / Thorax LVOT view. Gender: female. MATERNAL STRUCTURES ----- Cervix Suboptimal Right Ovary Not examined Left Ovary Not examined RECOMMENDATION ----- We discussed the findings on today's ultrasound with the patient. Serial ultrasounds (every 4 weeks) are recommended to monitor growthbeginning at 28 weeks gestation. We presume the follow up ultrasounds willbe performed in your office. Return to primary provider for continued care. Thank you for the opportunity to participate in the care of this patient.If you have questions regarding today's evaluation or if we can be offurther service, please contact the [facility]. anomalies may be present but not detected IMPRESSION ----- 1) Spangler intrauterine at 24w 2d gestational age. 2) None of the anomalies commonly detected by ultrasound were evident inthe anatomic survey described above. The anatomy that was previouslysub-optimally visualized was visualized today and appeared normal. 3) Growth parameters and estimated weight were consistent with anappropriate for gestation age pattern of growth. 4) The amniotic fluid volume appeared normal. Jalyn Haywood MD [facility] US ORDERAB LES documented in this encounter Visit Diagnoses Diagnosis Encounter for follow-up ultrasound of anatomy documented in this encounter Care Teams Telemetry Nurse Relationship Specialty Start Date End Date Veronica Morgan NP [address] [address] PCP - General 09/17/23 documented as of this encounter
--- OUTSIDE RECORDS SUMMARY | 2024-02-10 18:39 | XMS_ITS | Referral Summary ---
Author Name Unknown Organization [facility] Address [address] [place] [id number] Care Team Providers Care Metal Mockup Maker Name Role Phone Veronica Morgan NP Primary Care Provider Encounters Date Type Department Care Team Description 11/28/2023 Travel 11/28/2023 8:30 AM CMM PROGRAMMER Office Visit [facility] Maternal Medicine [address] [phone] Jalyn Haywood MD anomaly suspected but not found (Primary Dx); Hypertension affecting , second trimester 11/28/2023 8:00 AM CMM PROGRAMMER Ancillary Procedure [facility] Maternal Medicine [address] [phone] Jalyn Haywood MD Encounter for follow-up ultrasound of anatomy from Last 3 Months Allergies Active Allergy Reactions Criticality Noted Date Comments Soap 09/08/2001 Ivory Soap Medications Medication Sig Dispensed Refills Start Date End Date Status NO ACTIVE MEDICATIONS . 0 0 10/28/2000 Active ZOLOFT TABS 100 MG OR qd 30 5 02/11/2002 Active Social History Tobacco Use Types Packs/Day Years [...] on file Sexual Orientation Not on file Last Filed Vital Signs Vital Sign Reading Time Taken Comments Blood Pressure 112/70 10/07/2001 10:20 AM CMM PROGRAMMER Pulse 54 10/07/2001 10:20 AM CMM PROGRAMMER Temperature 36.1 ??C (96.9 ??F) 10/07/2001 10:[address] Respiratory Rate - - Oxygen Saturation - - Inhaled Oxygen Concentration - - Weight 62.1 kg (137 lb) 10/07/2001 10:20 AM CMM PROGRAMMER Height 163.8 cm (5' 4.5) 09/11/2001 9:00 AM CMM PROGRAMMER Body Mass Index - - Plan of Treatment Not on file Procedures Procedure Name Priority Date/Time Associated Diagnosis Comments [facility] US COMPREHENSIVE SINGLE F/U Routine 11/28/2023 8:28 AM CMM PROGRAMMER Encounter for follow-up ultrasound of anatomy from Last 3 Months Results * [facility] US Comprehensive Single F/U (11/28/2023 8:28 AM CMM PROGRAMMER) Anatomical Region Laterality Modality Ultrasound 11/28/2023 7:59 AM CMM PROGRAMMER Impressions 11/28/2023 11:14 AM CMM PROGRAMMER IMPRESSION ----- 1) Spangler intrauterine at 24w [...] volume appeared normal. Narrative 11/28/2023 11:14 AM CMM PROGRAMMER ?Comp Follow Up ----- Pat. Name: MARIA DE JESUS RAMIREZ ? Study Date: ??11/28/2023 7:59am Pat. NO: ??[id number] ?Referring ??MD: NELLI PAK Site: ??[place] ? Senior Account Clerk: ??Aparna Osborn RDMS : ??1985 ?Age: ?? 37 ----- INDICATION [...] ?Chante AGUIRRE ?81.5 ?mm ? 24w 4d ?Nicolaides HC ?222.4 ?mm ?24w 2d ?Hadlock Cerebellum tr ?25.4 ? mm ?23w 3d ?Nicolaides AC ?193.3 ?mm ?24w 0d ?33% ?Hadlock Femur ?45.0 ? mm ?24w 6d ?Hadlock Weight Calculation: EFW ? 686 ? g ? 43% ?Hadlock EFW (lb,oz) ? 1 lb 8 ?oz EFW by ?Hadlock ([id number]) Head / Face / Neck Biometry: City Dispatch Supervisor ? 4.0 ? mm CM ?5.2 ? mm ANATOMY ----- The following structures appear normal: Head / Neck ? Cranium. Head size. Head shape. Lateral ventricles. Midline falx. Cavum septi pellucidi. Cerebellum. Cisterna magna. Thalami. Face ? Lips. Profile. Nose. Lens. Heart / Thorax ?4-chamber view. RVOT view. Bicaval view. Superior vena cava. Inferior vena cava. 3-xbfmrs-ynxaqdl view. ? Diaphragm. Abdomen ? Stomach. Kidneys. [...] RAMIREZ Study Date: 11/28/2023 7:59am Pat. NO: [id number] Referring MD: NELLI PAK Site: [facility] Senior Account Clerk: Aparna Osborn RDMS : 1985 Age: 37 [...] 1 lb 8 oz EFW by Hadlock ([id number]-FL) Head / Face / Neck Biometry: City Dispatch Supervisor 4.0 mm CM 5.2 mm ANATOMY ----- The following structures appear normal: Head / Neck Cranium. Head size. Head shape.Lateral ventricles. Midline falx. Cavum septi pellucidi. Cerebellum.Cisterna magna. Thalami. Face Lips. Profile. Nose. Lens. Heart / Thorax 4-chamber view. RVOT view. Bicavalview. Superior vena cava. Inferior vena cava. 3-yuwcjk-wemzomo view. Diaphragm. Abdomen Stomach. Kidneys. Bladder. Spine [...] fluid volume appeared normal. Jalyn Haywood MD [facility] ORDERAB LES from Last 3 Months Care Teams Metal Mockup Maker Relationship Specialty Start Date End Date Veronica Morgan NP [address] [address] [facility] - General 09/17/23
--- OUTSIDE RECORDS SUMMARY | 2024-02-10 18:39 | XMS_ITS | Encounter Summary ---
Author Name Unknown Organization [place] Address [address] [place] [address] Care Team Providers Care Toy Mechanic Name Role Phone Veronica Morgan NP Primary Care Provider + [phone] Reason for Visit * Diagnostic Imaging Ultrasound (Routine) - Pending Review Specialty Diagnoses / Procedures Referred By Contac t Referred To Contact Radiology. Diagnoses related condition, antepartum Procedures [facility] US Comprehensive Single Vijaya Shepherd MD [facility] [address] [address] Referral ID Status Reason Start Date Expiration Date V isits Requested Visits Authorized [id number] Pending Review 09/17/2023 09/16/2024 1 1 Encounter Details Date Type Department Care Team (Latest Contact Info) Description 11/07/2023 9:30 AM CARPET YARN WINDER OPERATOR Ancillary Procedure [facility] [address] [place] [phone] Jalyn Haywood MD [address] [place], [place] [address]E S [facility] [email or web address] [address] [place] [address] related condition, antepartum Social History Tobacco Use Types Packs/Day Years Used Date Smoking Tobacco: Never Assessed Adolescent Education Answer Date Record ed Getting [...] Procedure Name Priority Date/Time Associated Diagnosis Comments [facility] COMPREHENSIVE SINGLE Routine 11/07/2023 10:10 AM CARPET YARN WINDER OPERATOR related condition, antepartum documented in this encounter Results * [facility] Comprehensive Single (11/07/2023 10:10 AM CARPET YARN WINDER OPERATOR) Anatomical Region Laterality Modality Ultrasound 11/07/2023 9:32 AM CARPET YARN WINDER OPERATOR Impressions 11/07/2023 1:31 PM CARPET YARN WINDER OPERATOR IMPRESSION ----- 1) Spangler intrauterine at 21w 2d gestational age. 2) None of the anomalies commonly detected by ultrasound were evident in the detailed anatomic survey described above, although evaluation of anatomy was suboptimal as noted above. 3) Growth parameters and estimated weight were consistent with an appropriate for gestation age pattern of growth. 4) The amniotic fluid volume appeared normal. Narrative 11/07/2023 1:31 PM CARPET YARN WINDER OPERATOR ?Comprehensive ----- Pat. Name: MARIA DE JESUS RAMIREZ ? Study Date: ??11/07/2023 9:32am Pat. NO: ??[id number] ?Referring ??MD: VIJAYA SHEPHERD Site: ??[facility] ? Sound Engineering Technician: Marsha Weathers RDMS : ??1985 ?Age: ?? 37 ----- INDICATION ----- Advanced Maternal Age Possible Chronic hypertension Low-Risk NIPT METHOD ----- Transabdominal ultrasound examination. View: Suboptimal view: limited by position. ----- Spangler . Number of fetuses: 1 DATING ----- ? Date ?Details ?Gest. age ?CONOR LMP ?06/11/2023 ? 21 w + 2 d ? 03/17/2024 Prior assessment ? 08/20/2023 ? GA: 10 w + 2 d ? 21 w + 4 d ? 03/15/2024 U/S ? 11/07/2023 ? based upon AC, BPD, Femur, HC ?21 w + 6 d ? 03/13/2024 Assigned dating ?Dating performed on 11/07/2023, based on the LMP ? 21 w + 2 d ? 03/17/2024 GENERAL EVALUATION ----- Cardiac activity present. FHR 153 bpm. movements present. Presentation cephalic. Placenta Posterior, No Previa, > 2 cm from internal os. Umbilical cord 3 vessel cord. Amniotic fluid normal MVP, MVP 4.7 cm. BIOMETRY ----- Main Biometry: BPD ?51.4 ?mm ? 21w 4d ?Chante AGUIRRE ?69.1 ?mm ? 21w 4d ?Nicolaides HC ?193.3 ?mm ?21w 4d ?Hadlock Cerebellum tr ?21.9 ? mm ?20w 6d ?Nicolaides AC ?170.3 ?mm ?22w 0d ?67% ?Hadlock Femur ?38.4 ? mm ?22w 2d ?Hadlock Humerus ?34.7 ?mm ? 21w 6d ?Anatoly Weight Calculation: EFW ? 473 ? g ? 82% ?Hadlock EFW (lb,oz) ? 1 lb 1 ?oz EFW by ?Hadlock ([id number]-FL) Head / Face / Neck Biometry: Flocculator Operator ? 5.0 ? mm CM ?3.6 ? mm Nasal bone ? 7.0 ? mm Nuchal fold ? 4.4 ? mm ANATOMY ----- The following structures appear normal: Head / Neck ? Cranium. Head size. Head shape. Lateral ventricles. Choroid plexus. Midline falx. Cavum septi pellucidi. Cerebellum. Cisterna magna. ? Parenchyma. Thalami. Vermis. ? Neck. Nuchal fold. Face ? Lips. Profile. Nose. Maxilla. Mandible. Orbits. Heart / Thorax ?4-chamber view. RVOT view. LVOT view. Situs. Aortic arch view. Ductal arch view. 3-vessel view. 0-iqbgzg-chzupqw view. Cardiac position. ? Cardiac size. Cardiac rhythm. ? Right lung. Left lung. Diaphragm. Abdomen ? Abdominal wall. Cord insertion. Stomach. Kidneys. Bladder. Liver. Bowel. Genitals. Spine ?Cervical spine. Thoracic spine. Lumbar spine. Sacral spine. Extremities / Skeleton ?Right arm. Right hand. Left arm. Left hand. Right leg. Right foot. Left leg. Left foot. The following structures could not be adequately visualized: Face ? Lens. Heart / Thorax ?Bicaval view. Superior vena cava. Inferior vena cava. Gender: female. MATERNAL STRUCTURES ----- Cervix ?Visualized ? Appearance: Appears Closed ? Approach - Transabdominal: Cervical length 40.5 mm Right Ovary ?Not visualized Left Ovary ?Not visualized RECOMMENDATION ----- We discussed the findings on today's ultrasound with the patient. The patient had low risk cell free DNA screening. We discussed the availability of amniocentesis for the precise diagnosis of chromosomal abnormalities. The patient declined amniocentesis today. We discussed the recommendation for initiation of low dose (81mg) aspirin for risk reduction of hypertensive disorders of (HDP). We reviewed this should be initiated between 12 and 28 weeks gestation (optimally before 16 weeks) and continued daily until delivery. In women with a prior history of preeclampsia or an increased risk of developing preeclampsia due to other risk factors (multifetal gestation, renal disease, autoimmune disease, type 1 or type 2 diabetes, and chronic hypertension) low-dose aspirin may reduce the risk by up to 25%. A repeat assessment of growth and the anatomy that was sub-optimally visualized is scheduled in our office. Subsequently, serial ultrasounds (every 4 weeks) are recommended to monitor growth beginning at 28 weeks gestation. We presume these subsequent ultrasounds will be performed in your office. Return to primary provider for continued care. Thank you for the opportunity to participate in the care of this patient. If you have questions regarding today's evaluation or if we can be of further service, please contact the [facility]. anomalies may be present but not detected I spent a total of 15 minutes on the date of this encounter including preparing to see the patient (reviewing medical records/tests), in direct zulu-dv-[id number] contact with the patient during her visit with the majority spent counseling and discussing the plan of care and documenting the visit in the electronic medical record. Please see note for details. Procedure Note Jalyn Haywood MD - 11/07/2023 Comprehensive ----- Pat. Name: MARIA DE JESUS RAMIREZ Study Date: 11/07/2023 9:32am Pat. NO: [id number] Referring MD: VIJAYA SHEPHERD Site: [facility] Sound Engineering Technician: Marsha Weathers RDMS : 1985 Age: 37 ----- INDICATION ----- Advanced Maternal Age Possible Chronic hypertension Low-Risk NIPT METHOD ----- Transabdominal ultrasound examination. View: Suboptimal view: limited byfetal position. ----- Spangler . Number of fetuses: 1 DATING ----- DateDetailsGest. age CONOR LMP w + 2 d 03/17/2024 Prior assessment 08/20/2023 GA: 10 w +2 d21 w + 4 d 03/15/2024 U/S 11/07/2023ased upon AC, BPD, Femur, HC21 w + 6 d 03/13/2024 Assigned dating Dating performed on 11/07/2023, based onthe LMP 21 w +2 d 03/17/2024 GENERAL EVALUATION ----- Cardiac activity present. FHR 153 bpm. movements present. Presentation cephalic. Placenta Posterior, No Previa, > 2 cm from internal os. Umbilical cord 3 vessel cord. Amniotic fluid normal MVP, MVP 4.7 cm. BIOMETRY ----- Main Biometry: BPD 51.4 mm21w 4d Hadlock OFD 69.1 mm21w 4d Nicolaides HC 193.3 mm21w 4d Hadlock Cerebellum tr 21.9 mm20w 6d Nicolaides AC 170.3 mm22w 0d 67% Hadlock Femur 38.4 mm22w 2d Hadlock Humerus 34.7 mm21w 6d Anatoly Weight Calculation: EFW 473 g82% Hadlock EFW (lb,oz) 1 lb 1 oz EFW by Hadlock ([id number]) Head / Face / Neck Biometry: Flocculator Operator 5.0 mm CM 3.6 mm Nasal bone 7.0 mm Nuchal fold 4.4 mm ANATOMY ----- The following structures appear normal: Head / Neck Cranium. Head size. Head shape.Lateral ventricles. Choroid plexus. Midline falx. Cavum septi pellucidi.Cerebellum. Cisterna magna. Parenchyma. Thalami. Vermis. Neck. Nuchal fold. Face Lips. Profile. Nose. Maxilla.Mandible. Orbits. Heart / Thorax 4-chamber view. RVOT view. LVOT view.Situs. Aortic arch view. Ductal arch view. 3-vessel view. 8-oamask-bzpeedznqez. Cardiac position. Cardiac size. Cardiac rhythm. Right lung. Left lung.Diaphragm. Abdomen Abdominal wall. Cord insertion.Stomach. Kidneys. Bladder. Liver. Bowel. Genitals. Spine Cervical spine. Thoracic spine.Lumbar spine. Sacral spine. Extremities / Skeleton Right arm. Right hand. Left arm. Lefthand. Right leg. Right foot. Left leg. Left foot. The following structures could not be adequately visualized: Face Lens. Heart / Thorax Bicaval view. Superior vena cava.Inferior vena cava. Gender: female. MATERNAL STRUCTURES ----- Cervix Visualized Appearance: Appears Closed Approach - Transabdominal:Cervical length 40.5 mm Right Ovary Not visualized Left Ovary Not visualized RECOMMENDATION ----- We discussed the findings on today's ultrasound with the patient. The patient had low risk cell free DNA screening. We discussed theavailability of amniocentesis for the precise diagnosis of chromosomalabnormalities. The patient declined amniocentesis today. We discussed the recommendation for initiation of low dose (81mg) aspirinfor risk reduction of hypertensive disorders of (HDP). Wereviewed this should be initiated between 12 and 28 weeks gestation (optimally before 16 weeks)and continued daily until delivery. In women with a prior history ofpreeclampsia or an increased risk of developing preeclampsia due to other risk factors (multifetalgestation, renal disease, autoimmune disease, type 1 or type 2 diabetes,and chronic hypertension) low-dose aspirin may reduce the risk by up to 25%. A repeat assessment of growth and the anatomy that was sub- optimallyvisualized is scheduled in our office. Subsequently, serial ultrasounds(every 4 weeks) are recommended to monitor growth beginning at 28 weeks gestation. Wepresume these subsequent ultrasounds will be performed in your office. Return to primary provider for continued care. Thank you for the opportunity to participate in the care of this patient.If you have questions regarding today's evaluation or if we can be offurther service, please contact the [facility]. anomalies may be present but not detected I spent a total of 15 minutes on the date of this encounter includingpreparing to see the patient (reviewing medical records/tests), in dnszciujcj-hk-jbbg contact with the patient during her visit with the majority spent counseling and discussingthe plan of care and documenting the visit in the electronic medicalrecord. Please see note for details. IMPRESSION ----- 1) Spangler intrauterine at 21w 2d gestational age. 2) None of the anomalies commonly detected by ultrasound were evident inthe detailed anatomic survey described above, although evaluation offetal anatomy was suboptimal as noted above. 3) Growth parameters and estimated weight were consistent with anappropriate for gestation age pattern of growth. 4) The amniotic fluid volume appeared normal. Vijaya MARTINEZ MF US ORDERABLE S documented in this encounter Visit Diagnoses Diagnosis related condition, antepartum documented in this encounter Care Teams Toy Mechanic Relationship Specialty Start Date End Date Veronica Morgan NP [address] [address] PCP - General 09/17/23 documented as of this encounter
--- OUTSIDE RECORDS SUMMARY | 2024-02-10 18:39 | XMS_ITS | Encounter Summary ---
Author Name Unknown Organization [facility] Address [address] [place] [address]. [place] [address] Care Team Providers Care Manager Garage Name Role Phone Veronica Morgan NP Primary Care Provider Encounter Details Date Type Department Care Team (Late st Contact Info) Description 11/01/2023 PRE VISIT [facility] [address] [phone] Josselin Baeza RN Social History Tobacco Use Types Packs/Day Years [...] on file documented as of this encounter Visit Diagnoses Not on filedocumented in this encounter Care Teams Manager Garage Relationship Specialty Start Date End Date Veronica Morgan NP [address] [address] PCP - General 09/17/23 documented as of this encounter
--- OUTSIDE RECORDS SUMMARY | 2024-02-10 18:39 | XMS_ITS | Clinical Summary ---
Author Name Unknown Organization [facility] Address [address] [place] [address] Care Team Providers Care Solid Waste Division Supervisor Name Role Phone Veronica Morgan NP Primary Care Provider Allergies Active Allergy Reactions Criticality Noted Date Comments Soap 09/08/2001 Ivory Soap Medications Medication Sig Dispensed Refills Start Date End Date Status NO ACTIVE MEDICATIONS . 0 0 10/28/2000 Active ZOLOFT TABS 100 MG OR qd 30 5 02/11/2002 Active Encounters Date Type Department Care Team Description 11/28/2023 8:30 AM GLOBAL RISK MANAGEMENT DIRECTOR Office Visit [facility] [address] [phone] Jalyn Haywood MD anomaly suspected but not found (Primary Dx); Hypertension affecting , second trimester 11/28/2023 8:00 AM GLOBAL RISK MANAGEMENT DIRECTOR Ancillary Procedure [facility] [address] [phone] Jalyn Haywood MD Encounter for follow-up ultrasound of anatomy 11/28/2023 Travel from Last 3 Months Family History Medical History Relation Comments Depression Mother dx 1987 Cancer Paternal Grandmother breast in r emission dx in Relation Status Comments Mother Paternal Grandmother Social History Tobacco Use Types Packs/Day Years [...] Comments Blood Pressure 112/70 10/07/2001 10:20 AM GLOBAL RISK MANAGEMENT DIRECTOR Pulse 54 10/07/2001 10:20 AM GLOBAL RISK MANAGEMENT DIRECTOR Temperature 36.1 ??C (96.9 ??F) 10/07/2001 10:[address] Respiratory Rate - - Oxygen Saturation - - Inhaled Oxygen Concentration - - Weight 62.1 kg (137 lb) 10/07/2001 10:20 AM GLOBAL RISK MANAGEMENT DIRECTOR Height 163.8 cm (5' 4.5) 09/11/2001 9:00 AM GLOBAL RISK MANAGEMENT DIRECTOR Body Mass Index - - Plan of Treatment Health Maintenance Due Date Last Done Comments ADVANCE CARE PLANNING 1985 ANNUAL REVIEW OF HM ORDERS 1987 GLUCOSE 1987 YEARLY PREVENTIVE VISIT 1987 HIV SCREENING 2002 HEPATITIS C SCREENING 2005 PAP 2008 COVID-19 Vaccine ( season) 2023 07/14/2021 INFLUENZA VACCINE (#1) 2023 9, 08/18/2019, 09/12/2018 MATERNAL SCREENING DISCUSSION 08/20/2023 PHQ-2 (once per calendar year) 2023 OBGCT (OB) 11/26/2023 GROUP B STREP SCREENING 02/18/2024 DTAP/TDAP/TD IMMUNIZATION (5 - Td or Tdap) 10/24/2025 10/24/2015, 10/31/2011, 10/28/2007, Additional history exists HEPATITIS B IMMUNIZATION Completed 017, 04/19/2016, 02/20/2016 HPV IMMUNIZATION Aged Out No longer e ligible based on patient's age to complete this topic IPV IMMUNIZATION Aged Out No longer e ligible based on patient's age to complete this topic MENINGITIS IMMUNIZATION Aged Out No l onger eligible based on patient's age to complete this topic Pneumococcal Vaccine: Pediatrics (0 to 5 Years) and At-Risk Patients (6 to 64 Years) Aged Out No longer eligible based on patient's age to complete this topic RSV MONOCLONAL ANTIBODY Aged Out No l onger eligible based on patient's age to complete this topic RSV VACCINE ( & 60+) (No Doses Required) Completed Procedures Procedure Name Priority Date/Time Associated Diagnosis Comments [facility] US COMPREHENSIVE SINGLE F/U Routine 11/28/2023 8:28 AM GLOBAL RISK MANAGEMENT DIRECTOR Encounter for follow-up ultrasound of anatomy from Last 3 Months Results * [facility] US Comprehensive Single F/U (11/28/2023 8:28 AM GLOBAL RISK MANAGEMENT DIRECTOR) Anatomical Region Laterality Modality Ultrasound 11/28/2023 7:59 AM GLOBAL RISK MANAGEMENT DIRECTOR Impressions 11/28/2023 11:14 AM GLOBAL RISK MANAGEMENT DIRECTOR IMPRESSION ----- 1) Spangler intrauterine at 24w [...] volume appeared normal. Narrative 11/28/2023 11:14 AM GLOBAL RISK MANAGEMENT DIRECTOR ?Comp Follow Up ----- Pat. Name: MARIA DE JESUS RAMIREZ ? Study Date: ??11/28/2023 7:59am Pat. NO: ??[id number] ?Referring ??MD: NELLI PAK Site: ??[facility] ? Director Of Retail Merchandising: ??Aparna Osborn, [facility] : ??1985 ?Age: [...] AGUIRRE ?81.5 ?mm ? 24w 4d ?Nicolaides ?222.4 ?mm ?24w 2d ?Hadlock Cerebellum tr ?25.4 ? mm ?23w 3d ?Nicolaides AC ?193.3 ?mm ?24w 0d ?33% ?Hadlock Femur ?45.0 ? mm ?24w 6d ?Hadlock Weight Calculation: EFW ? 686 ? g ? 43% ?Hadlock EFW (lb,oz) ? 1 lb 8 ?oz EFW by ?Hadlock ([id number]) Head / Face / Neck Biometry: Big Data Admin ? 4.0 ? mm CM ?5.2 ? mm ANATOMY ----- The following structures appear normal: Head / Neck ? Cranium. Head size. Head shape. Lateral ventricles. Midline falx. Cavum septi pellucidi. Cerebellum. Cisterna magna. Thalami. Face ? Lips. Profile. Nose. Lens. Heart / Thorax ?4-chamber view. RVOT view. Bicaval view. Superior vena cava. Inferior vena cava. 2-vrosvp-fttjzsx view. ? Diaphragm. Abdomen ? Stomach. Kidneys. [...] RAMIREZ Study Date: 11/28/2023 7:59am Pat. NO: [id number] Referring MD: NELLI PAK Site: [place] Director Of Retail Merchandising: Aparna Osborn RDMS : 1985 Age: 37 [...] 1 lb 8 oz EFW by Hadlock ([id number]) Head / Face / Neck Biometry: Big Data Admin 4.0 mm CM 5.2 mm ANATOMY ----- The following structures appear normal: Head / Neck Cranium. Head size. Head shape.Lateral ventricles. Midline falx. Cavum septi pellucidi. Cerebellum.Cisterna magna. Thalami. Face Lips. Profile. Nose. Lens. Heart / Thorax 4-chamber view. RVOT view. Bicavalview. Superior vena cava. Inferior vena cava. 4-eckfkk-mksvomm view. Diaphragm. Abdomen Stomach. Kidneys. Bladder. Spine [...] fluid volume appeared normal. Jalyn Haywood MD [facility] ORDERAB LES from Last 3 Months Care Teams Solid Waste Division Supervisor Relationship Specialty Start Date End Date Veronica Morgan NP [address] [address] PCP - General 09/17/23
--- OUTSIDE RECORDS SUMMARY | 2024-02-10 18:39 | XMS_ITS | Encounter Summary ---
Author Name Unknown Organization [facility] Address [address] [place] [address]. [place] [address] Care Team Providers Care Pan Shaker Name Role Phone Veronica Morgan NP Primary Care Provider Encounter Details Date Type Department Care Team (Latest Contact Info) Description 11/28/2023 Travel Social History Tobacco Use Types Packs/Day Years [...] on filedocumented in this encounter Care Teams Pan Shaker Relationship Specialty Start Date End Date Veronica Morgan NP [address] [address] PCP - General 09/17/23 documented as of this encounter
--- OUTSIDE RECORDS SUMMARY | 2024-02-10 18:39 | XMS_ITS | Encounter Summary ---
Author Name Unknown Organization [facility] Address [address] [place] [address] Care Team Providers Care Coal Hauler Name Role Phone Veronica Morgan NP Primary Care Provider + [phone] Reason for Visit * Reason Comments Genetic Counseling * Consultation (Routine: Next available opening) - Pending Review Specialty Diagnoses / Procedures Referred By Alysia ashley Referred To Contact Diagnoses related condition, antepartum Suppes, Vijaya Hicks MD [facility] [address] [address] Referral ID Status Reason Start Date Expiration Date V isits Requested Visits Authorized [id number] Pending Review 09/17/2023 09/16/2024 1 1 Encounter Details Date Type Department Care Team (Latest Contact Info) Description 11/07/2023 8:45 AM CASKET INSPECTOR Office Visit [facility] [address] [phone] Jalyn Haywood MD [address] [facility] [address] [place] [address] Jesus Grace GC [address] [place] [address] Multigravida of advanced maternal age in second trimester (Primary Dx); related condition, antepartum; Encounter for procreative genetic counseling Social History Tobacco Use Types Packs/Day Years [...] on file documented as of this encounter Progress Notes * Jesus Grace, GLADYS - 11/07/2023 8:45 AM CST [facility] Genetic Counseling Consult Patient: Antonella Ramirez Date of : 1985 Date of Service: 11/07/23 Antonella was seen at the [facility] [place] for genetic consultation.The indication for genetic counseling is advanced maternal age. [facility] Alfred[facility]. The session was conducted in Hungarian. IMPRESSION/ PLAN 1. Antonella had genetic screening earlier in this . Their non-invasive test was screen negative or low risk for screened conditions 2. During today's [facility] visit, Antonella had a genetic counseling session only. Screening and diagnostic testing was discussed and declined. 3. Carrier screening was discussed and declined. 4. Antonella had a level II comprehensive anatomy ultrasound today. Please see the ultrasound report for further details. 5. We reviewed the family history of cancer and discussed sporadic verus hereditary cancer syndromes. In the future, Antonella may wish to further discuss risks for cancer with her provider or a cancergenetic counselor. HISTORY /Parity: Antonella's history is significant for: 1st tri loss Term, 2016 Current CHTN CURRENT Current Age: [age] year old Age at Delivery: 38 year old CONOR: 03/17/2024, by Last Menstrual Period Gestational Age: 21w2d This is a single gestation. This was conceived spontaneously. MEDICAL HISTORY Per the medical record, Antonella's medical history includes anxiety, depression, paresthesia, syncope, sacrococcygeal disorders, and ovarian cystectomy. For a complete review of her diagnoses and medical history, please refer to the medical record. FAMILY HISTORY A three-generation pedigree was obtained today and is scanned under the Media tab in [employer]. The family history was reported by Antonella and their partner, Alfredito. Antonella and Alfredito have one daughter together who is 7 years of age with no reported health concerns. The following significant findings were reported today for Antonella's family: Mother had a breast mass while under the age of 50 (Antonella was uncertain whether this was cancerous, but per the medical record, her mother had a malignant neoplasm of the breast) Maternal half brother who an infancy from SIDS General maternal family history of benign breast masses Father with limited health history Paternal half sister with epilepsy Paternal grandmother with breast cancer under the age of 50 Paternal aunt with brain cancer in her 30s Per the medical record, there is also a history of heart disease in the family and an aunt with malignant neoplasm of the breast. Alfredito is 43 years of age. He reports that he almost had SIDS as an infant. He had stopped breathing and needed to take medication for about a year. Otherwise, he reports no major health concerns. The following significant findings were reported today for Alfredito's family: Niece with epilepsy (daughter of Alfredito's maternal half sister) Paternal half brother with limited health history Otherwise, the reported family history is unremarkable for multiple miscarriages, defects, intellectual disabilities, developmental delays, autism, known genetic conditions, and consanguinity. /SIDS We discussed that may sometimes be associated with genetic conditions. For example, some cases of sudden infant syndrome (SIDS) have been found to be attributed to metabolic disorders. Some metabolic disorders are screened for with [facility] [place] [facility] and/or are included in carrierscreening panels. Epilepsy Seizure disorders including epilepsy can be isolated or part of a broader genetic syndrome. When isolated, seizure disorders often result from multiple interacting genetic and environmental factors and follow a multifactorial pattern of inheritance. Given there is thought to be a genetic component,the risk may be increased for relatives. However there is no test to determine if a fetus will develop a seizure disorder. Cancer We discussed how most cancer seen in families occurs sporadically, but about 5- 10% may be due to anunderlying genetic etiology. We discussed that cancer diagnosed under the age of 50 raises suspicion for a potential hereditary cancer syndrome. Other characteristics that may suggest a hereditary cancer syndrome include cancer in 2 or more close relatives on the same side of the family, multiple primary tumors, bilateral or multiple rare cancers, constellations of tumors associated with a specific cancer syndrome (for example, breast cancer, brain tumors, soft tissue sarcomas, osteosarcomas, adrenocortical carcinomas, and others for Li Fraumeni), and evidence of autosomal dominant transmission. In Antonella's family, her mother may have had breast cancer under the age of 50. In addition, herpaternal grandmother had breast cancer under the age of 50 and her paternal aunt had brain cancer in her 30s. Antonella was not aware of any adrenal cancer. Based on age, individuals listed may qualify for cancer genetic testing. However, Antonella's aunt and grandmother have both . Other relatives may wish to pursue cancer genetic counseling. Antonella was encouraged to share cancer family history with her health care providers. Even if no hereditary cancer syndrome is identified in a family, individuals may be eligibile for increased screening or risk management options given a family history. Antonella was made aware of cancer genetic counseling. If the family wants more information they can contact the [facility] Cancer Risk Management Program ( ). Physicians can also make referrals at [email or web address] or, if within the [employer] system, through [facility] referral for Cancer Risk Mgmt/Cancer Genetic Counseling RISK ASSESSMENT FOR CHROMOSOME CONDITIONS We explained that the risk for chromosome abnormalities increases with maternal age. We discussed specific features of common chromosome abnormalities, including Down syndrome, trisomy 13, trisomy 18, and sex chromosome trisomies. At age 38 at midtrimester, the risk to have a baby with Down syndrome is 1 in 216. At age 38 at midtrimester, the risk to have a baby with any chromosome abnormality is 1 in 105. Antonella had genetic screening earlier in this . Their non-invasive test through [facility] was screen negative or low risk for screened conditions Non-invasive testing (NIPT) results Maternal plasma cell-free DNA testing Screens for trisomy 21, trisomy 13, trisomy 18, and sex chromosome aneuploidy Antonella had a NIPT test earlier in ; we reviewed the results today, which are low risk. Predicted sex is female. Given the accuracy of this test, these results greatly decrease the chance for certain chromosome abnormalities We discussed the limitations of normal NIPT results GENETIC TESTING OPTIONS FOR CHROMOSOMAL CONDITIONS Genetic testing during a includes screening and diagnostic procedures. Screening tests are non-invasive which means no risk to the and includes ultrasounds and blood work. The benefits and limitations of screening were reviewed. Screening tests provide a risk assessment (chance) specific to the for certain chromosome abnormalities but cannot definitively diagnose or exclude a chromosome abnormality. Follow-up genetic counseling and consideration of diagnostic testing is recommended with any abnormal screening result. Diagnostic testing during a is more certain and can test for more conditions. However, the tests do have a risk of miscarriage that requires careful consideration. These tests can detect chromosome ab normalities with greater than 99% certainty. Results can be compromised by maternal cell contamination or mosaicism and are limited by the resolution of current genetic testing technology. There is no screening or diagnostic test that detects all forms of defects or intellectual disability. We discussed the following screening options: Non-invasive testing (NIPT) Please see details discussed above. We discussed the following ultrasound options: Comprehensive level II ultrasound ( Anatomy Ultrasound) Ultrasound done between 18-20 weeks gestation Screens for major defects and markers for aneuploidy (like trisomy 21 and trisomy 18) Includes looking at the fetus/baby's growth, heart, organs (stomach, kidneys), placenta, and amniotic fluid We discussed the following diagnostic options: Amniocentesis Invasive diagnostic procedure done after 15 weeks gestation The procedure collects a small sample of amniotic fluid for the purpose of chromosomal testing and/or other genetic testing Diagnostic result; more than 99% sensitivity for chromosome abnormalities Testing for AFP in the amniotic fluid can test for open neural tube defects CARRIER SCREENING Expanded carrier screening is available to screen for autosomal recessive conditions and X-linked conditions in a large list of genes. Autosomal recessive conditions happen when a mutation has been inherited from the egg and sperm and include conditions like cystic fibrosis, thalassemia, hearing loss, spinal muscular atrophy, and more. X-linked conditions happen when a mutation has been inheritedfrom the egg and include conditions like fragile X syndrome. [place] screening was also reviewed. About [place] [facility] The patient declined the carrier screening options. They are aware the option will remain, and theycan contact us if they would like to pursue screening. It was a pleasure to be involved with [facility]???s care. [id number] time of the meeting was 45 minutes. Jesus Grace MS, [facility] Board Certified and [place] Licensed Genetic Counselor [facility]: [phone] [facility]: [phone] [facility] ET INSPECTOR documented in this encounter Nursing Notes * Yesenia Yoder RN - 11/07/2023 8:45 AM CST Antonella Ramirez is a at 21w2d who presents to [facility] for a comprehensive ultrasound. Pt reports positive movement. Pt denies bldg/lof/change in discharge, contractions, headache, visionchanges, chest pain/SOB or edema. SBAR given to Dr. Haywood, see note in Epic. Yesenia Yoder RN ET INSPECTOR documented in this encounter Plan of Treatment Not on file documented as of this encounter Visit Diagnoses Diagnosis Multigravida of advanced maternal age in second trimester- Primary related condition, antepartum Encounter for procreative genetic counseling documented in this encounter Care Teams Coal Hauler Relationship Specialty Start Date End Date Veronica Morgan NP [address] [address] PCP - General 09/17/23 documented as of this encounter
--- OUTSIDE RECORDS SUMMARY | 2024-02-10 18:39 | XMS_ITS | Encounter Summary ---
Author Name Unknown Organization [facility] Address [address] [place] [address]. [place] [address] Care Team Providers Care Pillowcase Cutter Name Role Phone Veronica Morgan NP Primary Care Provider Encounter Details Date Type Department Care Team (Latest Contact Info) Description 11/07/2023 Travel Social History Tobacco Use Types Packs/Day [...] on filedocumented in this encounter Care Teams Pillowcase Cutter Relationship Specialty Start Date End Date Veronica Morgan NP [address] [address] PCP - General 09/17/23 documented as of this encounter
--- OUTSIDE RECORDS SUMMARY | 2024-02-10 18:39 | XMS_ITS | Encounter Summary ---
Author Name Unknown Organization [facility] Address [facility] [place] [address] Care Team Providers Care Gang Miner Name Role Phone Veronica Morgan NP Primary Care Provider + [phone] Reason for Referral * Diagnostic Imaging Ultrasound (Routine) - Pending Review Specialty Diagnoses / Procedures Referred By Contac t Referred To Contact Radiology. Diagnoses Encounter for follow-up ultrasound of anatomy Procedures [facility] US Comprehensive Single F/U Jalyn Haywood MD [address] [place] [address] Referral ID Status Reason Start Date Expiration Date V isits Requested Visits Authorized [id number] Pending Review 11/07/2023 11/06/2024 1 1 TING TECHNICIAN Reason for Visit * Reason Comments Ultrasound L2 for AMA/CHTN Encounter Details Date Type Department Care Team (Latest Contact Info) Description 11/07/2023 10:00 AM DRAFTING TECHNICIAN Office Visit [facility] [address] [place] [phone] Jalyn Haywood MD [address] [place] [address] Encounter for follow-up ultrasound of anatomy (Primary Dx); Advanced maternal age in multigravida, second trimester; Hypertension affecting , second trimester Social History Tobacco Use Types Packs/Day Years [...] as of this encounter Progress Notes * Jalyn Haywood MD - 11/07/2023 10:00 AM CST Please see the imaging tab for details of the ultrasound performed today. Jalyn Haywood MD Specialist in Maternal- Medicine TING TECHNICIAN documented in this encounter Nursing Notes * Yesenia Yoder RN - 11/07/2023 10:00 AM CST Maria De Jesus Ramirez is a at 21w2d who presents to [facility] for a comprehensive ultrasound. Pt reports positive movement. Pt denies bldg/lof/change in discharge, contractions, headache, vision changes, chest pain/SOB or edema. SBAR given to Dr. Haywood, see note in Epic. Yesenia Yoder RN TING TECHNICIAN documented in this encounter Plan of Treatment Not on file documented as of this encounter Results * [facility] US Comprehensive Single F/U (11/28/2023 8:28 AM DRAFTING TECHNICIAN) Anatomical Region Laterality Modality Ultrasound 11/28/2023 7:59 AM DRAFTING TECHNICIAN Impressions 11/28/2023 11:14 AM DRAFTING TECHNICIAN IMPRESSION ----- 1) Spangler intrauterine at 24w [...] volume appeared normal. Narrative 11/28/2023 11:14 AM DRAFTING TECHNICIAN ?Comp Follow Up ----- Pat. Name: MARIA DE JESUS RAMIREZ ? Study Date: ??11/28/2023 7:59am Pat. NO: ??[id number] ?Referring ??: NELLI PAK Site: ??[facility] ? Field Merchandiser: ??Aparna Osborn RDMS : ??1985 ?Age: ?? [...] Biometry: BPD ?57.2 ?mm ? 23w 4d ?Hadlock OFD ?81.5 ?mm ? 24w 4d ?Nicolaides HC ?222.4 ?mm ?24w 2d ?Hadlock Cerebellum tr ?25.4 ? mm ?23w 3d ?Nicolaides AC ?193.3 ?mm ?24w 0d ?33% ?Hadlock Femur ?45.0 ? mm ?24w 6d ?Hadlock Weight Calculation: EFW ? 686 ? g ? 43% ?Hadlock EFW (lb,oz) ? 1 lb 8 ?oz EFW by ?Hadlock ([id number]-FL) Head / Face / Neck Biometry: Case Planner ? 4.0 ? mm CM ?5.2 ? mm ANATOMY ----- The following structures appear normal: Head / Neck ? Cranium. Head size. Head shape. Lateral ventricles. Midline falx. Cavum septi pellucidi. Cerebellum. Cisterna magna. Thalami. Face ? Lips. Profile. Nose. Lens. Heart / Thorax ?4-chamber view. RVOT view. Bicaval view. Superior vena cava. Inferior vena cava. 3-fkmfqd-njgdhtg view. ? Diaphragm. Abdomen ? Stomach. Kidneys. [...] RAMIREZ Study Date: 11/28/2023 7:59am Pat. NO: [id number] Referring MD: NELLI PAK Site: [place] Field Merchandiser: Aparna Osborn RDMS : 1985 Age: 37 [...] 1 lb 8 oz EFW by Hadlock (ACI-DN-CL-FL) Head / Face / Neck Biometry: Case Planner 4.0 mm CM 5.2 mm ANATOMY ----- The following structures appear normal: Head / Neck Cranium. Head size. Head shape.Lateral ventricles. Midline falx. Cavum septi pellucidi. Cerebellum.Cisterna magna. Thalami. Face Lips. Profile. Nose. Lens. Heart / Thorax 4-chamber view. RVOT view. Bicavalview. Superior vena cava. Inferior vena cava. 0-rskeoo-knthzzu view. Diaphragm. Abdomen Stomach. Kidneys. Bladder. Spine [...] fluid volume appeared normal. Jalyn Haywood MD IMG [facility] US ORDERAB LES documented in this encounter Visit Diagnoses Diagnosis Encounter for follow-up ultrasound of anatomy- Primary Advanced maternal age in multigravida, second trimester Hypertension affecting , second trimester Encounter for follow-up ultrasound of anatomy documented in this encounter Care Teams Gang Miner Relationship Specialty Start Date End Date Veronica Morgan NP [address] [place] [address] PCP - General 09/17/23 documented as of this encounter
--- OUTSIDE RECORDS SUMMARY | 2024-02-10 18:39 | XMS_ITS | Continuity of Care Document ---
Author Name Unknown Organization [facility] Address [address] [address] [place] [address] Phone Care Team Providers Care Handy Man Name Role Phone No Information Unavailable Unavailable Allergies, Adverse Reactions, Alerts Substance Reaction Status Criticality Sulfa (Sulfonamide Antibiotics) Anaphylactic shock Act jeremi No Information doxycycline Anaphylactic shock Active No Inform ation Medications Medication Instructions Dosage Effective Dates (start - stop) Status Comments Marlissa 0.15 mg-0.03 mg tablet take 1 tablet by oral route every day 1.00 tablet - Active Celexa 20 mg tablet take 1 tablet by oral route every day 20 MG - Active dicyclomine 10 mg capsule take 1-2 capsule by oral route 2-3 times every day - Active Procedures Procedure Date Offic/outpt E&m Estab Mod-hi 2 18 Ugi Endo; W/bx 1/mx Level Iv-surg Path Gross/micro 17 Immunocytochemistry, Each Antibody Office Cons New/estab Mod Routine Serum Collection Gg; Iga, Igd, Igg, Igm, Ea C-reactive Prot Comp Metabolic Panel Bld Ct; Hg & Platelet Ct Autom 17 Advance Directives Directive Yes / No Effective Date File Name No Information Encounters Encounter Description Practice Location Reason(s) For Visit Diagnoses Date Provider Providers Copied on Encounter [facility], [address] [address], [place], [id number], [place] tel:[phone] No Information 3 No Information Offic/outpt E&m Estab Mod-hi 2 [facility], [address] [address], [place], [place], [id number], tel:[phone] [facility] GI Symptoms or Concerns (chief complaint) Abnormal biliary HIDA scanDietary counseling and surveillance [address] [facility], [address], [id number], [place]. tel:[phone] [facility], [address] [address], [place], [place], [id number], [place] tel:[phone] [facility] Epigastric painNauseaUnspec ified chronic gastritis without bleeding [address], [id number], [place]. [phone] Office Cons New/estab Mod [facility], [address] [address], [place], [place], [id number], [place] tel:[phone] [facility] GI Symptoms or Concerns (chief complaint) Functional diarrheaEarly satietyElevated blood-pressure reading, w/o diagnosis of htnDietary counseling and surveillance [address], [id number], [place]. tel:[phone] Family History Family Member Type Diagnosis Age At Onset Mother Problem (finding) gallbladder disease Brother Problem (finding) Brother Problem (finding) Alive and well Sister Problem (finding) Alive and well Daughter Problem (finding) Alive and well Sister Problem (finding) asthma Mother Problem (finding) peptic ulceration Father Problem (finding) gallbladder disease Father Problem (finding) Colon polyps Immunizations Vaccine Date Status Comments Influenza, injectable, quadrivalent, preservative free, 3 yrs or older administered Note: Invalid docum ented admin date was . ; Source: Other Provider Payers Payer name Insurance type Covered alliance party ID Authoriza tion(s) No Information Social History Type Description Quantity Date Captured Comments Sex Female Smoking Status No Information Chief Complaint And Reason For Visit No Information Reason For Referral Reason For Referral No Information Plan Of Treatment Date Type Action Status Goal Lifestyle education regardin g diet completed Goal Lifestyle education regardin g diet completed Referral Ordered: referred to Nacho Odell MD Surgery symptoms with HIDA scan 1 Week Appointment date/timeframe: 12/12/2017 ordered Referral Ordered: HIDA Scan WITH Ejection Fraction Appointment date/timeframe: 11/12/2017 ordered Referral Ordered: EGD Appointment date/timeframe: 10/24/2017 ordered History Of Present Illness Encounter Date Complaint History Of Prese nt Illness GI Symptoms or Concerns I had th e pleasure of seeing Ms. Antonella Ramirez, a 31-year-old woman, who presents to GI Clinic for follow up of diarrhea, abdominal pain, early satiety, hematemesis, and blood per rectum.Antonella says that symptoms began approximately one year ago when she developed diarrhea. At that point, she underwent stool testing and was told that she had Cryptosporidium infection. This was treated appropriately and she said she had resolution of symptoms for six to eight weeks. Ultimately, her symptoms recurred, but at this time in the context of also having abdominal pain and more frequency to defecate. She says that she had repeat stool tests that confirmed eradication of Cryptosporidium and with no sign of other infection. She was ultimately referred to Dr. Riddhi Laird in the [facility] system for colonoscopy. The endoscopic exam of her colon and ileum were normal and biopsies throughout the colon were negative for microscopic colitis. Antonella says that Dr. Riddhi Laird told her she had irritable bowel syndrome as the likely cause for her symptoms.Antonella has not been prescribed any medication for IBS. She personally does not recall any blood tests performed recently despite her symptoms.She says she underwent a CT scan of her abdomen and pelvis in [facility] in March of this year and was told everything was normal, but is unsure.After meeting her I performed CBC, CMP, TTG, TSH which were normal.EGD showed some gastritis and small HH.HIDA scan was performed and the radiographic portion of the study was normal, but Antonella states that her symptoms of pain and nausea and even some urgency to stool were all reproduced exactly with infusion of CCK. GI Symptoms or Concerns A comple te history and physical exam and review of systems were obtained in the clinic today and recorded on our electronic medical record. Please see my assessment and plan below.I had the pleasure of meeting . Antonella Ramirez, a 31-year-old woman, who presents to GI Clinic at the request of her primary care physician, Veronica Morgan, for consultation for diarrhea, abdominal pain, early satiety, hematemesis, and blood per rectum.Antonella says that symptoms began approximately one year ago when she developed diarrhea. At that point, she underwent stool testing and was told that she had Cryptosporidium infection. This was treated appropriately and she said she had resolution of symptoms for six to eight weeks. Ultimately, her symptoms recurred, but at this time in the context of also having abdominal pain and more frequency to defecate. She says that she had repeat stool tests that confirmed eradication of Cryptosporidium and with no sign of other infection. She wa Functional Status Date Functional Assessmen t No Information Instructions Date Instruction Additional Infor jose Lifestyle education regarding di et Related to Dietary counseling and surveillance 1. Blood tests as ab ove.2. Endoscopy with biopsies as above.3. We will obtain results from CT scan.4. Trial of dicyclomine.5. Follow up in clinic in two months.Thank you so much for involving me in the care of Ms. Ramirez. Related to Functional diarrhea Irritable Bowel Syndrome Related to Functional diarrhea Low FODMAPS diet Related to Func tional diarrhea Lifestyle education regarding di et Related to Dietary counseling and surveillance Assessments Type Assessment Date No Information Patient Care Teams Name Effective Dates (start - stop) Status Members No Information
--- OUTSIDE RECORDS SUMMARY | 2024-02-10 18:39 | XMS_ITS | Encounter Summary ---
Author Name Unknown Organization [facility] Address [address] [place] [address] Care Team Providers Care Offshore Diver Name Role Phone Veronica Morgan NP Primary Care Provider [phone] Reason for Visit * Reason Comments Ultrasound RL2 for sub-optimal anatomy and growth Encounter Details Date Type Department Care Team (Latest Contact Info) Description 11/28/2023 8:30 AM SPRAYER HAND Office Visit [facility] [address] [phone] Jalyn Haywood MD [address] [place] [address] anomaly suspected but not found (Primary Dx); Hypertension affecting , second trimester Social History [...] Progress Notes * Jalyn Haywood MD - 11/28/2023 8:30 AM CST Please see the imaging tab for details of the ultrasound performed today. Jalyn Haywood MD Specialist in Maternal- Medicine YER HAND documented in this encounter Nursing Notes * Yesenia Yoder RN - 11/28/2023 8:30 AM CST Antonella Ramirez is a at 24w2d who presents to [facility] for a follow-up ultrasound for sub-optimal anatomy and growth. Pt reports positive movement. Pt denies bldg/lof/change in discharge, contractions, headache, vision changes, chest pain/SOB or edema. SBAR given to Dr. Haywood, see note in Epic. Yesenia Yoder RN YER HAND documented in this encounter Plan of Treatment Not on file documented as of this encounter Visit Diagnoses Diagnosis anomaly suspected but not found- Primary Suspected anomaly not found Hypertension affecting , second trimester documented in this encounter Care Teams Offshore Diver Relationship Specialty Start Date End Date Veronica Morgan NP [address] [address] PCP - General 09/17/23 documented as of this encounter
[2024-02-10 18:51] VITALS: BP 118/72; PULSE 24; PULSE 69; O2SAT 80
[2024-02-10 18:52] VITALS: PULSE 74; O2SAT 98
[2024-02-10 18:55] VITALS: BP 114/75; PULSE 68
[2024-02-10 20:00] LABS: Bilirubin Urine Negative (Negative); Blood Urine Negative (Negative); Color Urine Yellow (Yellow); Glucose Urine Negative (Negative); Ketones Urine Negative (Negative); Leukocyte Esterase Urine 1+ (Negative); Nitrite Urine Negative (Negative); Protein Urine Negative (Negative); Urobilinogen Urine 0.2 (0.2-1.0)
[2024-02-10 20:02] LABS: Appearance Urine Slightly Cloudy (Clear)
[2024-02-10 20:40] LABS: Yeast No Yeast Seen (None Seen)
[2024-02-10 20:41] LABS: Bacteria Urine Many; Clue Cells No Clue Cells Seen (None Seen); RBC Urine 0-2 (0-2); Squamous Epithelial Cell Urine Moderate (None-Few); Trichomonas No Trichomonas Seen (None Seen)
--- NOTE | 2024-02-10 20:53 | PC.OBNST ---
NST Note NST Note Start: 02/10/24 18:53 Freq: ONCE Status: Active Protocol: Document 02/10/24 20:52 CYRIL (Rec: 02/10/24 20:53 CYRIL [id number]) NST Note 3 Para (# of births) 1 EDC 03/17/24 Gestational Age In Weeks & Days 34 Weeks & 6 Days Patient Presented with Complaint(s) of Contractions/cramping Reactive Yes Appropriate for Gestational Age Yes MADHURI mann RNC Date 02/10/24 Reactive Yes Appropriate for Gestational Age Yes MADHURI Bravo RN Date 02/10/24 OB NST charge Yes Complete NST Note via Write Note Yes The provider's electronic signature indicates the NST is reactive/appropriate for gestational age. *Note to provider: If an addendum is required, open the patient's chart and click on the note under the Nurse/Allied Health tab.
[2024-02-10] MEDS: NITROFURANTOIN MONOHYD MACRO 100 MG CAPSULE PO (20:58)
== END 2024-02-10 20:58 | disposition home or self-care (01) ==
LOC: OB OUT 18:37 → OB 18:37
PROVIDERS: PCP Nurse Practitioner Family; Visit Provider Obstetrics & Gynecology
DX: O47.03 False labor before 37 completed weeks of gestation, third trimester (principal); Z3A.34 34 weeks gestation of pregnancy
CPT/HCPCS: 59025; 81001; 81003; 87086; 87210; G0463; A9270

== ENCOUNTER 2024-02-17 08:10 | Outpatient (CLI) | payer BC, SELFPAY ==
--- NOTE | 2024-02-17 08:13 | US_ITS ---
Patient: MARIA DE JESUS ZAPATA Facility:?[facility] Patient ID:?[id number] Site Patient ID:?[id number]. Site :?1985 Study:?US-OB Pelvis OB F/U-02/17/2024 8:52:51 AM Ordering Physician:?Vijaya Shepherd Final Report: INDICATION: Advanced maternal age. Check growth. TECHNIQUE: Limited transabdominal two-dimensional lama-scale ultrasound examination. COMPARISON: 01/21/2024, 12/24/2023 and 08/20/2023 FINDINGS: There is a living fetus in cephalic lie with gestational age of 35 weeks 6 days by LMP and 36 weeks 6 days by today`s measurements. EDC by LMP is 03/17/2024. BPD: 9.0 cm, 36 weeks 4 days Head circumference: 32.7 cm, 37 weeks Abdominal circumference: 32.0 cm, 36 weeks Femur length: 7.4 cm, 37 weeks 5 days The weight is estimated at 2987 grams, the 72nd percentile. The heart rate is measured at 131 beats per minute and the rhythm appears regular. The amniotic fluid volume is within normal limits with single deepest pocket of 4.7 cm. The placenta is left wall and superior to the cervical os. There is no evidence of previa. IMPRESSION: 1. Living fetus in cephalic lie with gestational age of 35 weeks 6 days by LMP at 36 weeks 6 days by today`s measurements. EDC based on LMP is 03/17/2024. 2. weight estimated at 2987 grams, the 72nd percentile upright. Dictated by Clif Dawson MD @ 02/17/2024 1:14:01 PM Signed by:?Clif Dawson MD @02/17/2024 1:14:01 PM (Electronic Signature)
--- OUTSIDE RECORDS SUMMARY | 2024-02-17 08:17 | XMS_ITS | Clinical Summary ---
Author Name Unknown Organization [facility] Address [address] [place] [address]. [place] [address] Care Team Providers Care Vendette Name Role Phone Veronica Morgan NP Primary Care Provider [phone] Allergies Active Allergy Reactions Criticality Noted Date Comments Soap 09/08/2001 Ivory Soap Medications Medication Sig Dispensed Refills Start Date End Date Status NO ACTIVE MEDICATIONS . 0 0 10/28/2000 Active ZOLOFT TABS 100 MG OR qd 30 5 02/11/2002 Active Encounters Date Type Department Care Team Description 11/28/2023 8:30 AM MORTGAGE FUNDER Office Visit [facility] [address] [phone] Jalyn Haywood MD anomaly suspected but not found (Primary Dx); Hypertension affecting , second trimester 11/28/2023 8:00 AM MORTGAGE FUNDER Ancillary Procedure [facility] [address] [phone] Jalyn Haywood MD Encounter for follow-up ultrasound [...] Comments Blood Pressure 112/70 10/07/2001 10:20 AM MORTGAGE FUNDER Pulse 54 10/07/2001 10:20 AM MORTGAGE FUNDER Temperature 36.1 ??C (96.9 ??F) 10/07/2001 10:[address] Respiratory Rate - - Oxygen Saturation - - Inhaled Oxygen Concentration - - Weight 62.1 kg (137 lb) 10/07/2001 10:20 AM MORTGAGE FUNDER Height 163.8 cm (5' 4.5) 09/11/2001 9:00 AM MORTGAGE FUNDER Body Mass Index - - Plan of [...] Procedure Name Priority Date/Time Associated Diagnosis Comments [facility] US COMPREHENSIVE SINGLE F/U Routine 11/28/2023 8:28 AM MORTGAGE FUNDER Encounter for follow-up ultrasound of anatomy from Last 3 Months Results * [facility] US Comprehensive Single F/U (11/28/2023 8:28 AM MORTGAGE FUNDER) Anatomical Region Laterality Modality Ultrasound 11/28/2023 7:59 AM MORTGAGE FUNDER Impressions 11/28/2023 11:14 AM MORTGAGE FUNDER IMPRESSION ----- 1) Spangler intrauterine at 24w [...] volume appeared normal. Narrative 11/28/2023 11:14 AM MORTGAGE FUNDER ?Comp Follow Up ----- Pat. Name: MARIA DE JESUS RAMIREZ ? Study Date: ??11/28/2023 7:59am Pat. NO: ??[id number] ?Referring ??MD: NELLI PAK Site: ??[facility] ? Palm Gatherer: ??Aparna Osborn, [facility] : ??1985 ?Age: ?? 37 ----- INDICATION [...] 1 lb 8 ?oz EFW by ?Hadlock ([id number]) Head / Face / Neck Biometry: Small Animal Veterinarian ? 4.0 ? mm CM ?5.2 ? mm ANATOMY ----- The following structures appear normal: Head / Neck ? Cranium. Head size. Head shape. Lateral ventricles. Midline falx. Cavum septi pellucidi. Cerebellum. Cisterna magna. Thalami. Face ? Lips. Profile. Nose. Lens. Heart / Thorax ?4-chamber view. RVOT view. Bicaval view. Superior vena cava. Inferior vena cava. 9-onxakg-qtmhyar view. ? Diaphragm. Abdomen ? Stomach. Kidneys. [...] RAMIREZ Study Date: 11/28/2023 7:59am Pat. NO: [id number] Referring MD: NELLI PAK Site: [place] Palm Gatherer: Aparna Osborn RDMS : 1985 Age: 37 [...] 1 lb 8 oz EFW by Hadlock ([id number]) Head / Face / Neck Biometry: Small Animal Veterinarian 4.0 mm CM 5.2 mm ANATOMY ----- The following structures appear normal: Head / Neck Cranium. Head size. Head shape.Lateral ventricles. Midline falx. Cavum septi pellucidi. Cerebellum.Cisterna magna. Thalami. Face Lips. Profile. Nose. Lens. Heart / Thorax 4-chamber view. RVOT view. Bicavalview. Superior vena cava. Inferior vena cava. 7-kintgo-kqnxect view. Diaphragm. Abdomen Stomach. Kidneys. Bladder. Spine [...] fluid volume appeared normal. Jalyn Haywood MD [facility] ORDERAB LES from Last 3 Months Care Teams Vendette Relationship Specialty Start Date End Date Veronica Morgan NP [address] [address] PCP - General 09/17/23
--- OUTSIDE RECORDS SUMMARY | 2024-02-17 08:17 | XMS_ITS | Referral Summary ---
Author Name Unknown Organization [facility] Address [address] [place] [address] Care Team Providers Care Prepress Stripper Name Role Phone Veronica Morgan NP Primary Care Provider Encounters Date Type Department Care Team Description 11/28/2023 Travel 11/28/2023 8:30 AM HEALTHCARE ADMINISTRATIVE ASSISTANT Office Visit [facility] [address] [phone] Jalyn Haywood MD anomaly suspected but not found (Primary Dx); Hypertension affecting , second trimester 11/28/2023 8:00 AM HEALTHCARE ADMINISTRATIVE ASSISTANT Ancillary Procedure [facility] [address] [phone] Jalyn Haywood MD Encounter for follow-up ultrasound [...] Comments Blood Pressure 112/70 10/07/2001 10:20 AM HEALTHCARE ADMINISTRATIVE ASSISTANT Pulse 54 10/07/2001 10:20 AM HEALTHCARE ADMINISTRATIVE ASSISTANT Temperature 36.1 ??C (96.9 ??F) 10/07/2001 10:[address] Respiratory Rate - - Oxygen Saturation - - Inhaled Oxygen Concentration - - Weight 62.1 kg (137 lb) 10/07/2001 10:20 AM HEALTHCARE ADMINISTRATIVE ASSISTANT Height 163.8 cm (5' 4.5) 09/11/2001 9:00 AM HEALTHCARE ADMINISTRATIVE ASSISTANT Body Mass Index - - Plan of Treatment Not on file Procedures Procedure Name Priority Date/Time Associated Diagnosis Comments [facility] US COMPREHENSIVE SINGLE F/U Routine 11/28/2023 8:28 AM HEALTHCARE ADMINISTRATIVE ASSISTANT Encounter for follow-up ultrasound of anatomy from Last 3 Months Results * [facility] US Comprehensive Single F/U (11/28/2023 8:28 AM HEALTHCARE ADMINISTRATIVE ASSISTANT) Anatomical Region Laterality Modality Ultrasound 11/28/2023 7:59 AM HEALTHCARE ADMINISTRATIVE ASSISTANT Impressions 11/28/2023 11:14 AM HEALTHCARE ADMINISTRATIVE ASSISTANT IMPRESSION ----- 1) Spangler intrauterine at 24w [...] volume appeared normal. Narrative 11/28/2023 11:14 AM HEALTHCARE ADMINISTRATIVE ASSISTANT ?Comp Follow Up ----- Pat. Name: MARIA DE JESUS RAMIREZ ? Study Date: ??11/28/2023 7:59am Pat. NO: ??[id number] ?Referring ??MD: NELLI PAK Site: ??[place] ? Cloth Printer Helper: ??Aparna Osborn RDMS : ??1985 ?Age: ?? [...] 1 lb 8 ?oz EFW by ?Hadlock ([id number]) Head / Face / Neck Biometry: Mineral Surveying Technician ? 4.0 ? mm CM ?5.2 ? mm ANATOMY ----- The following structures appear normal: Head / Neck ? Cranium. Head size. Head shape. Lateral ventricles. Midline falx. Cavum septi pellucidi. Cerebellum. Cisterna magna. Thalami. Face ? Lips. Profile. Nose. Lens. Heart / Thorax ?4-chamber view. RVOT view. Bicaval view. Superior vena cava. Inferior vena cava. 2-lcvmid-gdmorjj view. ? Diaphragm. Abdomen ? Stomach. Kidneys. [...] RAMIREZ Study Date: 11/28/2023 7:59am Pat. NO: [id number] Referring MD: NELLI PAK Site: [place] Cloth Printer Helper: Aparna Osborn RDMS : 1985 Age: 37 [...] 1 lb 8 oz EFW by Hadlock ([id number]) Head / Face / Neck Biometry: Mineral Surveying Technician 4.0 mm CM 5.2 mm ANATOMY ----- The following structures appear normal: Head / Neck Cranium. Head size. Head shape.Lateral ventricles. Midline falx. Cavum septi pellucidi. Cerebellum.Cisterna magna. Thalami. Face Lips. Profile. Nose. Lens. Heart / Thorax 4-chamber view. RVOT view. Bicavalview. Superior vena cava. Inferior vena cava. 4-ejrlks-ywnlxtj view. Diaphragm. Abdomen Stomach. Kidneys. Bladder. Spine [...] fluid volume appeared normal. Jalyn Haywood MD [facility] ORDERAB LES from Last 3 Months Care Teams Prepress Stripper Relationship Specialty Start Date End Date Veronica Morgan NP [address] [address] [facility] - General 09/17/23
--- OUTSIDE RECORDS SUMMARY | 2024-02-17 08:17 | XMS_ITS | Encounter Summary ---
Author Name Unknown Organization [facility] Address [address] [place] [address]. [place] [address] Care Team Providers Care Men'S Golf Coach Name Role Phone Veronica Morgan NP Primary [...] on filedocumented in this encounter Care Teams Men'S Golf Coach Relationship Specialty Start Date End Date Veronica Morgan NP [address] [address] PCP - General 09/17/23 documented as of this encounter
--- OUTSIDE RECORDS SUMMARY | 2024-02-17 08:17 | XMS_ITS | Encounter Summary ---
Author Name Unknown Organization [facility] Address [address] [place] [address]. [place] [address] Care Team Providers Care Mmd Unit Teacher Name Role Phone Veronica Morgan NP Primary Care Provider [phone] Reason for Visit * Reason Onset Date Comments Ultrasound 11/01/2023 Encounter Details Date Type Department Care Team (Late st Contact Info) Description 11/01/2023 PRE VISIT [facility] [address] [phone] Josselin Baeza RN Ultrasound Social History Tobacco Use Types Packs/Day Years [...] on filedocumented in this encounter Care Teams Mmd Unit Teacher Relationship Specialty Start Date End Date Veronica Morgan NP [address] [address] PCP - General 09/17/23 documented as of this encounter
--- OUTSIDE RECORDS SUMMARY | 2024-02-17 08:17 | XMS_ITS | Encounter Summary ---
Author Name Unknown Organization [facility] Address [address] [place] [address] Care Team Providers Care Director Of Outpatient Services Name Role Phone Veronica Morgan NP Primary Care Provider [phone] Reason for Visit * Reason Comments Ultrasound RL2 for sub-optimal anatomy and growth Encounter Details Date Type Department Care Team (Latest Contact Info) Description 11/28/2023 8:30 AM POLICE ARTIST Office Visit [facility] [address] [phone] Jalyn Haywood MD [address] [place] [address] anomaly suspected but not found (Primary [...] Jalyn Haywood MD Specialist in Maternal- Medicine CE ARTIST documented in this encounter Nursing Notes * Yesenia Yoder RN - 11/28/2023 8:30 AM CST Antonella Ramirez is a at 24w2d who presents to [facility] for a follow-up ultrasound for sub-optimal anatomy and growth. Pt reports positive movement. Pt denies bldg/lof/change in discharge, contractions, headache, vision changes, chest pain/SOB or edema. SBAR given to Dr. Haywood, see note in Epic. Yesenia Yoder RN CE ARTIST documented in this encounter Plan of Treatment Not on file documented as of this encounter Visit Diagnoses Diagnosis anomaly suspected but not found- Primary Suspected anomaly not found Hypertension affecting , second trimester documented in this encounter Care Teams Director Of Outpatient Services Relationship Specialty Start Date End Date Veronica Morgan NP [address] [address] PCP - General 09/17/23 documented as of this encounter
--- OUTSIDE RECORDS SUMMARY | 2024-02-17 08:17 | XMS_ITS | Encounter Summary ---
Author Name Unknown Organization [facility] Address [address] [facility] [place] [address] Care Team Providers Care Plane Tender Name Role Phone Veronica Morgan NP Primary Care Provider + [phone] Reason for Visit * Diagnostic Imaging Ultrasound (Routine) - Pending Review Specialty Diagnoses / Procedures Referred By Contac t Referred To Contact Radiology. Diagnoses Encounter for follow-up ultrasound of anatomy Procedures [facility] US Comprehensive Single F/U Jalyn Haywood MD [address] [place] [address] Referral ID Status Reason Start Date Expiration Date V isits Requested Visits Authorized [id number] Pending Review 11/07/2023 11/06/2024 1 1 Encounter Details Date Type Department Care Team (Latest Contact Info) Description 11/28/2023 8:00 AM SHANK INSPECTOR Ancillary Procedure [facility] [address] [place] [phone] Jalyn Haywood MD [address] [place] [address] Encounter for follow-up ultrasound of [...] Procedure Name Priority Date/Time Associated Diagnosis Comments [facility] US COMPREHENSIVE SINGLE F/U Routine 11/28/2023 8:28 AM SHANK INSPECTOR Encounter for follow-up ultrasound of anatomy documented in this encounter Results * [facility] US Comprehensive Single F/U (11/28/2023 8:28 AM SHANK INSPECTOR) Anatomical Region Laterality Modality Ultrasound 11/28/2023 7:59 AM SHANK INSPECTOR Impressions 11/28/2023 11:14 AM SHANK INSPECTOR IMPRESSION ----- 1) Spangler intrauterine at 24w [...] volume appeared normal. Narrative 11/28/2023 11:14 AM SHANK INSPECTOR ?Comp Follow Up ----- Pat. Name: MARIA DE JESUS RAMIREZ ? Study Date: ??11/28/2023 7:59am Pat. NO: ??[id number] ?Referring ??MD: NELLI PAK Site: ??[place] ? [place]: ??Aparan Osborn [facility] : ??1985 ?Age: ?? 37 ----- [...] 1 lb 8 ?oz EFW by ?Hadlock ([id number]) Head / Face / Neck Biometry: Grinder Hardboard ? 4.0 ? mm CM ?5.2 ? mm ANATOMY ----- The following structures appear normal: Head / Neck ? Cranium. Head size. Head shape. Lateral ventricles. Midline falx. Cavum septi pellucidi. Cerebellum. Cisterna magna. Thalami. Face ? Lips. Profile. Nose. Lens. Heart / Thorax ?4-chamber view. RVOT view. Bicaval view. Superior vena cava. Inferior vena cava. 0-zomsdp-kzpzhvm view. ? Diaphragm. Abdomen ? Stomach. Kidneys. [...] RAMIREZ Study Date: 11/28/2023 7:59am Pat. NO: [id number] Referring MD: NELLI PAK Site: [place]: Aparna Osborn RDMS : 1985 Age: 37 [...] 1 lb 8 oz EFW by Hadlock ([id number]) Head / Face / Neck Biometry: Grinder Hardboard 4.0 mm CM 5.2 mm ANATOMY ----- The following structures appear normal: Head / Neck Cranium. Head size. Head shape.Lateral ventricles. Midline falx. Cavum septi pellucidi. Cerebellum.Cisterna magna. Thalami. Face Lips. Profile. Nose. Lens. Heart / Thorax 4-chamber view. RVOT view. Bicavalview. Superior vena cava. Inferior vena cava. 0-rcylcf-zqkdjfu view. Diaphragm. Abdomen Stomach. Kidneys. Bladder. Spine [...] anatomy documented in this encounter Care Teams Plane Tender Relationship Specialty Start Date End Date Veronica Morgan NP [address] [address] PCP - General 09/17/23 documented as of this encounter
== END 2024-02-17 08:11 | disposition home or self-care (01) ==
LOC: US 08:10
PROVIDERS: PCP Nurse Practitioner Family; Visit Provider Obstetrics & Gynecology
DX: O09.523 Supervision of elderly multigravida, third trimester (principal); Z3A.35 35 weeks gestation of pregnancy
CPT/HCPCS: 76816; 87081; 87653

== ENCOUNTER 2024-03-05 13:14 | Outpatient (CLI) | payer BC, SELFPAY ==
--- OUTSIDE RECORDS SUMMARY | 2024-03-05 13:22 | XMS_ITS | Encounter Summary ---
Author Name Unknown Organization [facility] Address [address] [place] [address]. [place] [address] Care Team Providers Care Associate Professor Of History Name Role Phone Veronica Morgan NP Primary Care Provider [phone] Reason for Visit * Reason Onset Date Comments Ultrasound 11/01/2023 Encounter Details Date Type Department Care Team (Late st Contact Info) Description 11/01/2023 PRE VISIT [facility] Center [address] [phone] Josselin Baeza RN Ultrasound Social History Tobacco [...] on filedocumented in this encounter Care Teams Associate Professor Of History Relationship Specialty Start Date End Date Veronica Morgan NP [address] [address] PCP - General 09/17/23 documented as of this encounter
--- OUTSIDE RECORDS SUMMARY | 2024-03-05 13:22 | XMS_ITS | Referral Summary ---
Author Name Unknown Organization [facility] Address [address] [place] [address] Care Team Providers Care Materials And Processes Manager Name Role Phone Veronica Morgan NP Primary [...] Comments Blood Pressure 112/70 10/07/2001 10:20 AM AUTOMATIC DATA PROCESSING PLANNER Pulse 54 10/07/2001 10:20 AM AUTOMATIC DATA PROCESSING PLANNER Temperature 36.1 ??C (96.9 ??F) 10/07/2001 10:[address] Respiratory Rate - - Oxygen Saturation - - Inhaled Oxygen Concentration - - Weight 62.1 kg (137 lb) 10/07/2001 10:20 AM AUTOMATIC DATA PROCESSING PLANNER Height 163.8 cm (5' 4.5) 09/11/2001 9:00 AM AUTOMATIC DATA PROCESSING PLANNER Body Mass Index - - Plan of Treatment Not on file Care Teams Materials And Processes Manager Relationship Specialty Start Date End Date Veronica Morgan NP [address] [address] PCP - General 09/17/23
--- OUTSIDE RECORDS SUMMARY | 2024-03-05 13:22 | XMS_ITS | Encounter Summary ---
Author Name Unknown Organization [facility] Address [address] [place] [address]. [place] [address] Care Team Providers Care Foreign Banknote Teller Name Role Phone Veronica Morgan NP Primary [...] on filedocumented in this encounter Care Teams Foreign Banknote Teller Relationship Specialty Start Date End Date Veronica Morgan NP [address] [address] PCP - General 09/17/23 documented as of this encounter
--- OUTSIDE RECORDS SUMMARY | 2024-03-05 13:22 | XMS_ITS | Clinical Summary ---
Author Name Unknown Organization [facility] Address [address] [place] [address] Care Team Providers Care Nuclear Logging Engineer Name Role Phone Veronica Morgan NP Primary Care Provider Allergies Active Allergy Reactions Criticality Noted Date Comments Soap 09/08/2001 Ivory Soap Medications Medication Sig Dispensed Refills Start Date End Date Status NO ACTIVE MEDICATIONS . 0 0 10/28/2000 Active ZOLOFT TABS 100 MG OR qd 30 5 02/11/2002 Active Family History Medical History Relation Comments Depression [...] Comments Blood Pressure 112/70 10/07/2001 10:20 AM GUEST SERVICE TEAM LEADER Pulse 54 10/07/2001 10:20 AM GUEST SERVICE TEAM LEADER Temperature 36.1 ??C (96.9 ??F) 10/07/2001 10:[address] Respiratory Rate - - Oxygen Saturation - - Inhaled Oxygen Concentration - - Weight 62.1 kg (137 lb) 10/07/2001 10:20 AM GUEST SERVICE TEAM LEADER Height 163.8 cm (5' 4.5) 09/11/2001 9:00 AM GUEST SERVICE TEAM LEADER Body Mass Index - - Plan of Treatment Health Maintenance Due Date Last Done Comments ADVANCE CARE PLANNING 1985 ANNUAL REVIEW OF HM ORDERS 1987 GLUCOSE 1987 YEARLY PREVENTIVE VISIT 1987 HIV SCREENING 2002 HEPATITIS C SCREENING 2005 PAP 2008 COVID-19 Vaccine ( season) 2023 07/14/2021 MATERNAL SCREENING DISCUSSION 08/20/2023 PHQ-2 (once per calendar year) 2023 OBGCT (OB) 11/26/2023 GROUP B STREP SCREENING 02/18/2024 INFLUENZA VACCINE (Season Ended) 2024 08/18/2019, 08/18/2019, 09/12/2018 DTAP/TDAP/TD IMMUNIZATION (5 - Td or Tdap) [...] ( & 60+) (No Doses Required) Completed Care Teams Nuclear Logging Engineer Relationship Specialty Start Date End Date Veronica Morgan NP [facility] [address] [place] [address] PCP - General 09/17/23
--- OUTSIDE RECORDS SUMMARY | 2024-03-05 13:22 | XMS_ITS | Encounter Summary ---
Author Name Unknown Organization [facility] Address [address] [place] [address] Care Team Providers Care Equal Opportunity Representative Name Role Phone Veronica Morgan NP Primary Care Provider + [phone] Reason for Visit * Reason Comments Ultrasound RL2 for sub-optimal anatomy and growth Encounter Details Date Type Department Care Team (Latest Contact Info) Description 11/28/2023 8:30 AM GLAZE SUPERVISOR Office Visit [facility] [address] [phone] Jalyn Haywood MD [address] [place] [address] anomaly suspected but not found (Primary [...] Jalyn Haywood MD Specialist in Maternal- Medicine E SUPERVISOR documented in this encounter Nursing Notes * Yesenia Yoder RN - 11/28/2023 8:30 AM CST Antonella Ramirez is a at 24w2d who presents to [facility] for a follow-up ultrasound for sub-optimal anatomy and growth. Pt reports positive movement. Pt denies bldg/lof/change in discharge, contractions, headache, vision changes, chest pain/SOB or edema. SBAR given to Dr. Haywood, see note in Epic. Yesenia Yoder RN E SUPERVISOR documented in this encounter Plan of Treatment Not on file documented as of this encounter Visit Diagnoses Diagnosis anomaly suspected but not found- Primary Suspected anomaly not found Hypertension affecting , second trimester documented in this encounter Care Teams Equal Opportunity Representative Relationship Specialty Start Date End Date Veronica Morgan NP [address] [address] PCP - General 09/17/23 documented as of this encounter
--- OUTSIDE RECORDS SUMMARY | 2024-03-05 13:22 | XMS_ITS | Continuity of Care Document ---
Author Name Unknown Organization [facility] Address [address] [address] [place] [address] Phone Care Team Providers Care Second Crusher Name Role Phone No Information Unavailable Unavailable [...] Diagnoses Date Provider Providers Copied on Encounter [facility], [address] [address], [place], [id number], [place] tel:[phone] No Information No Information Offic/outpt E&m Estab Mod-hi 2 [facility], [address] [address], [place], [place], [id number], tel:[phone] [facility] Symptoms or Concerns (chief complaint) Abnormal biliary HIDA scanDietary counseling and surveillance [address] [facility], [address], [id number], [place]. tel:[phone] [facility], [address] [address], [place], [place], [id number], [place] tel:[phone] [facility] Epigastric painNauseaUnspec ified chronic gastritis without bleeding [address], [id number], [place]. [phone] Office Cons New/estab Mod [facility], [address] [address], [place], [place], [id number], [place] tel:[phone] [facility] GI Symptoms or Concerns (chief complaint) Functional diarrheaEarly satietyElevated blood-pressure reading, w/o diagnosis of htnDietary counseling and surveillance [address], [id number], [place]. tel:[phone] Family History Family Member Type Diagnosis Age [...] referred to Dr. Riddhi Laird in the [facility] system for colonoscopy. The endoscopic exam of [...] scan of her abdomen and pelvis in [facility] in March of this year and was [...]
--- OUTSIDE RECORDS SUMMARY | 2024-03-05 13:22 | XMS_ITS | Encounter Summary ---
Author Name Unknown Organization [facility] Address [address] [facility] [place] [address] Care Team Providers Care Oracle Forms Developer Name Role Phone Veronica Morgan NP Primary Care Provider + [phone] Reason for Visit * Diagnostic Imaging Ultrasound (Routine) - Pending Review Specialty Diagnoses / Procedures Referred By Contac t Referred To Contact Radiology. Diagnoses Encounter for follow-up ultrasound of anatomy Procedures [facility] US Comprehensive Single F/U Jalyn Haywood MD [address] [place] [address] Referral ID Status Reason Start Date Expiration Date V isits Requested Visits Authorized [id number] Pending Review 11/07/2023 11/06/2024 1 1 Encounter Details Date Type Department Care Team (Latest Contact Info) Description 11/28/2023 8:00 AM MEDICAID SPECIALIST Ancillary Procedure [facility] [address] [place] [phone] Jalyn Haywood MD [address] [place] [address] Encounter for follow-up ultrasound of [...] Procedure Name Priority Date/Time Associated Diagnosis Comments [facility] US COMPREHENSIVE SINGLE F/U Routine 11/28/2023 8:28 AM MEDICAID SPECIALIST Encounter for follow-up ultrasound of anatomy documented in this encounter Results * [facility] US Comprehensive Single F/U (11/28/2023 8:28 AM MEDICAID SPECIALIST) Anatomical Region Laterality Modality Ultrasound 11/28/2023 7:59 AM MEDICAID SPECIALIST Impressions 11/28/2023 11:14 AM MEDICAID SPECIALIST IMPRESSION ----- 1) Spangler intrauterine at 24w [...] volume appeared normal. Narrative 11/28/2023 11:14 AM MEDICAID SPECIALIST ?Comp Follow Up ----- Pat. Name: MARIA DE JESUS RAMIREZ ? Study Date: ??11/28/2023 7:59am Pat. NO: ??[id number] ?Referring ??MD: NELLI PAK Site: ??[place] ? [place]aster Hand: ??Aparna Osborn [facility] : ??1985 ?Age: ?? [...] 1 lb 8 ?oz EFW by ?Hadlock ([id number]) Head / Face / Neck Biometry: Air Intelligence Specialist ? 4.0 ? mm CM ?5.2 ? mm ANATOMY ----- The following structures appear normal: Head / Neck ? Cranium. Head size. Head shape. Lateral ventricles. Midline falx. Cavum septi pellucidi. Cerebellum. Cisterna magna. Thalami. Face ? Lips. Profile. Nose. Lens. Heart / Thorax ?4-chamber view. RVOT view. Bicaval view. Superior vena cava. Inferior vena cava. 0-mciher-alcgngs view. ? Diaphragm. Abdomen ? Stomach. Kidneys. [...] RAMIREZ Study Date: 11/28/2023 7:59am Pat. NO: [id number] Referring MD: NELLI PAK Site: [place] Laster Hand: Aparna Osborn RDMS : 1985 Age: 37 [...] 1 lb 8 oz EFW by Hadlock ([id number]) Head / Face / Neck Biometry: Air Intelligence Specialist 4.0 mm CM 5.2 mm ANATOMY ----- The following structures appear normal: Head / Neck Cranium. Head size. Head shape.Lateral ventricles. Midline falx. Cavum septi pellucidi. Cerebellum.Cisterna magna. Thalami. Face Lips. Profile. Nose. Lens. Heart / Thorax 4-chamber view. RVOT view. Bicavalview. Superior vena cava. Inferior vena cava. 1-jpucsm-jatuxoi view. Diaphragm. Abdomen Stomach. Kidneys. Bladder. Spine [...] anatomy documented in this encounter Care Teams Oracle Forms Developer Relationship Specialty Start Date End Date Veronica Morgan NP [address] [address] PCP - General 09/17/23 documented as of this encounter
[2024-03-05 13:45] VITALS: BP 121/87; PULSE 76; TEMP 36.8
[2024-03-05 13:46] VITALS: PULSE 79; O2SAT 98
[2024-03-05 14:07] LABS: Appearance Urine Cloudy (Clear); Bilirubin Urine 1+ (Negative); Blood Urine 2+ (Negative); Color Urine Dark yellow (Yellow); Glucose Urine Negative (Negative); Ketones Urine 2+ (Negative); Leukocyte Esterase Urine 3+ (Negative); Nitrite Urine Negative (Negative); Protein Urine 2+ (Negative); Specific Gravity Urine >= 1.030 (1.000-1.030); pH Urine 5.5 (5.0-8.5)
[2024-03-05 14:13] LABS: Clue Cells No Clue Cells Seen (None Seen); Trichomonas No Trichomonas Seen (None Seen); Yeast No Yeast Seen (None Seen)
[2024-03-05 14:19] LABS: Bacteria Urine Many; Squamous Epithelial Cell Urine Many (None-Few); WBC Clumps Urine Few; WBC Urine 25-50 (0-5)
[2024-03-05] MEDS: LACTATED RINGERS 500 ML 500 ML IV (14:45)
--- NOTE | 2024-03-05 16:26 | PC.OBNST ---
NST Note NST Note Start: 03/05/24 13:32 Freq: ONCE Status: Complete Protocol: Document 03/05/24 16:24 GUS (Rec: 03/05/24 16:25 GUS [id number]) NST Note 3 Para (# of births) 1 EDC 03/17/24 Gestational Age In Weeks & Days 38 Weeks & 2 Days Patient Presented with Complaint(s) of Contractions/cramping,Other Other Complaints Diarrhea Reactive Yes Appropriate for Gestational Age Yes MADHURI Arreguin RNC Date 03/05/24 Reactive Yes Appropriate for Gestational Age Yes MADHURI Leach RN Date 03/05/24 OB NST charge Yes Complete NST Note via Write Note Yes The provider's electronic signature indicates the NST is reactive/appropriate for gestational age. *Note to provider: If an addendum is required, open the patient's chart and click on the note under the Nurse/Allied Health tab.
== END 2024-03-05 16:15 | disposition home or self-care (01) ==
LOC: OB OUT 13:15 → OB 13:15
PROVIDERS: PCP Nurse Practitioner Family; Visit Provider Obstetrics & Gynecology
DX: O47.1 False labor at or after 37 completed weeks of gestation (principal); Z3A.38 38 weeks gestation of pregnancy
CPT/HCPCS: 59025; 81001; 81003; 87086; 87210; G0463; J7120

== ENCOUNTER 2024-03-10 06:51 | Inpatient (IN) | payer BC, SELFPAY ==
[2024-03-10] VITALS (66 sets, daily range): BP systolic 105–184; BP diastolic 59–93; PULSE 59–134; RESP 18; TEMP 36.6–37.3; O2SAT 74–100; BMI 32.8
--- OUTSIDE RECORDS SUMMARY | 2024-03-10 05:16 | XMS_ITS | Continuity of Care Document ---
Author Name Unknown Organization [facility] Address [address] [address] [place] [address] Phone Care Team Providers Care Fiscal Accountant Name Role Phone No Information Unavailable Unavailable [...] Diagnoses Date Provider Providers Copied on Encounter [facility], [address] [address], [place], [id number], [place] tel:[phone] No Information No Information Offic/outpt E&m Estab Mod-hi 2 [facility], [address] [address], [place], [place], [id number], tel:[phone] [facility] GI Symptoms or Concerns (chief complaint) Abnormal biliary HIDA scanDietary counseling and surveillance 0 [address] [facility], [address], [id number], [place]. tel:[phone] [facility], [address] [address], [place], [place], [id number], [place] tel:[phone] [facility] Epigastric painNauseaUnspec ified chronic gastritis without bleeding [address], [id number], [place]. [phone] Office Cons New/estab Mod [facility], [address] [address], [place], [place], [id number], [place] tel:[phone] [facility] GI Symptoms or Concerns (chief complaint) Functional diarrheaEarly satietyElevated blood-pressure reading, w/o diagnosis of htnDietary counseling and surveillance [address], [id number], [place]. tel:[phone] Family History Family Member Type Diagnosis Age [...] Provider Payers Payer name Insurance type Covered republican ID Authoriza tion(s) No Information Social History [...] referred to Dr. Riddhi Laird in the [facility] system for colonoscopy. The endoscopic exam [...] scan of her abdomen and pelvis in [facility] in March of this year and [...]
--- OUTSIDE RECORDS SUMMARY | 2024-03-10 05:16 | XMS_ITS | Clinical Summary ---
Author Name Unknown Organization [facility] Address [address] [place] [address] Care Team Providers Care Informatics Consultant Name Role Phone Veronica Morgan NP Primary [...] Comments Blood Pressure 112/70 10/07/2001 10:20 AM ORACLE DRM CONSULTANT Pulse 54 10/07/2001 10:20 AM ORACLE DRM CONSULTANT Temperature 36.1 ??C (96.9 ??F) 10/07/2001 10:[address] Respiratory Rate - - Oxygen Saturation - - Inhaled Oxygen Concentration - - Weight 62.1 kg (137 lb) 10/07/2001 10:20 AM ORACLE DRM CONSULTANT Height 163.8 cm (5' 4.5) 09/11/2001 9:00 AM ORACLE DRM CONSULTANT Body Mass Index - - Plan of [...] 60+) (No Doses Required) Completed Care Teams Informatics Consultant Relationship Specialty Start Date End Date Veronica Morgan NP [facility] [address] [place] [address] PCP - General 09/17/23
--- OUTSIDE RECORDS SUMMARY | 2024-03-10 05:16 | XMS_ITS | Encounter Summary ---
Author Name Unknown Organization [facility] Address [address] [place] [address]. [place] [address] Care Team Providers Care Livestock Brands Inspector Name Role Phone Veronica Morgan NP Primary Care Provider [phone] Reason for Visit * Reason Onset Date Comments Ultrasound 11/01/2023 Encounter Details Date Type Department Care Team (Late st Contact Info) Description 11/01/2023 PRE VISIT [facility] [address] [phone] Josselin Baeza RN Ultrasound Social History Tobacco [...] on filedocumented in this encounter Care Teams Livestock Brands Inspector Relationship Specialty Start Date End Date Veronica Morgan NP [address] [address] PCP - General 09/17/23 documented as of this encounter
--- OUTSIDE RECORDS SUMMARY | 2024-03-10 05:16 | XMS_ITS | Referral Summary ---
Author Name Unknown Organization [facility] Address [address] [place] [address] Care Team Providers Care Cloth Baler Name Role Phone Veronica Morgan NP Primary Care Provider [phone] Allergies Active Allergy Reactions Criticality Noted Date [...] Comments Blood Pressure 112/70 10/07/2001 10:20 AM OIL RIGGER Pulse 54 10/07/2001 10:20 AM OIL RIGGER Temperature 36.1 ??C (96.9 ??F) 10/07/2001 10:[address] Respiratory Rate - - Oxygen Saturation - - Inhaled Oxygen Concentration - - Weight 62.1 kg (137 lb) 10/07/2001 10:20 AM OIL RIGGER Height 163.8 cm (5' 4.5) 09/11/2001 9:00 AM OIL RIGGER Body Mass Index - - Plan of Treatment Not on file Care Teams Cloth Baler Relationship Specialty Start Date End Date Veronica Morgan NP [address] [address] PCP - General 09/17/23
--- NOTE | 2024-03-10 06:26 | P.LDBA_ITS ---
Subjective History of Present Illness Time Seen by Provider: 06:27 Date Seen: 03/10/24 Narrative: Patient is being admitted to Labor and Delivery for regular contractions Q5 minutes. She is a 38 year old at 39.0 weeks gestation. Her full history and physical was dictated by Dr. Simon on 03/04/24. Please see this for details. Per RN check: 60/-4. Breathing through contractions NST: 130 bpm, moderate variability, + accels, - decel Kennard: Q5-7 minutes Specific Issues/Plans Spouse: Alfredito Daughter: Sophia. Baby: Girl! [place]gett - Jackie 1. AMA * Cell free DNA: 09/16/2023, GIRL!!! * Level 2 US: 11/07/2023, normal. Follow-up ultrasound scheduled to review anatomy suboptimally visualized. Follow-up scan on 11/28/2023 was normal * Growth ultrasounds q.4 weeks beginning at 28 weeks gestation. * 01/21/24 US for EFW: Vtx, SDP 4.0cm, EFW equals 2085 g, 4 lb 10 oz, 70%. BPD 50%, HC 70%, AC 65%, FL 77%. * 02/16: EFW 2987g at 72%ile. SDP 4.7cm. 2. Anxiety.. She self discontinued citalopram 10 mg approximately 2 months prior to 1st OB. * At new OB: PHQ-9 3, ingrid 7: 15. * Recommend she restart citalopram 10 mg * PHQ-9 and INGRID-7 on 09/16/2023: PHQ-9: 4, INGRID-7: 0. 3. History of hypertension is on her problem list. Patient was never treated with medication. Blood pressure normalized during her last and have remained normal 4. GBS positive. Ampicillin in labor. Flu shot: Declined COVID shot: Declined Tdap:01/20 Mental health: Done OB - Problem Based A/P Additional Plan (1) : Status: Acute (2) AMA (advanced maternal age) multigravida 35+: Status: Acute Plan - Patient desires augmentation on labor - Pain control: Unsure at this point. Will see how she is tolerating her contractions when they get closer together - GBS+: will start abx intrapartum - Plan: will admit for augmentation of labor with Pitocin OB Exam Physical Exam Vital signs: Temp Pulse Resp BP 99.1 F 80 18 119/88 03/10/24 05:29 03/10/24 05:28 03/10/24 05:29 03/10/24 05:28 Narrative: Physical exam: General: No acute distress. Breathing through contractions Psych: Alert and oriented x3, full affect HEENT: Normocephalic, atraumatic Lungs: Unlabored breathing in between contractions. Neuro: No focal deficit. Mentating appropriately Pelvic exam: Deferred until next cervical exam
[2024-03-10 07:57] LABS: Basophils Absolute Auto 0.02 K/uL (0.00-0.30); Basophils Percent Auto 0.2 % (0.0-3.0); Eosinophils Absolute Auto 0.13 K/uL (0.00-0.50); Eosinophils Percent Auto 1.3 % (0.0-7.0); Hematocrit 36.5 % (33.0-51.0); Hemoglobin* 12.1 gm/dL (12.0-16.0); Immature Granulocytes Abs Auto 0.23 K/uL (0.00-0.30); Immature Granulocytes Pct Auto 2.4 %; Lymphocytes Absolute Auto 2.22 K/uL (0.90-2.90); Mean Corpuscular HGB Conc 33 gm/dL (32-36); Mean Corpuscular Hemoglobin 29 pg (26-34); Mean Corpuscular Volume 88 fL (80-100); Monocytes Percent Auto 7.4 % (0.0-11.0); Neutrophils Absolute Auto 6.35 K/uL (1.7-7.0); Neutrophils Percent Auto 65.7 % (42.0-72.0); Platelet Count* 367 K/uL (140-440); RDW Coefficient of Variation % 13.6 % (11.5-15.5); Red Blood Count 4.15 m/uL (4.00-5.20); White Blood Count* 9.67 K/uL (4.50-11.00)
[2024-03-10 07:59] LABS: Slide Review Reflex No
[2024-03-10] MEDS: LACTATED RINGERS 1000 ML 1,000 ML 125 ML IV (08:15)
[2024-03-10] MEDS: AMPICILLIN 2 GM in 0.9 % SODIUM CHLORIDE Mini-bag 100 ML IVPB (08:16)
[2024-03-10] MEDS: CALCIUM CARBONATE 500 MG CHEW PO ×3 (08:18→17:11)
[2024-03-10] MEDS: AMPICILLIN 1 GM in 0.9 % SODIUM CHLORIDE Mini-bag 100 ML IVPB ×2 (12:40→16:44)
[2024-03-10] MEDS: fentaNYL 250 MCG/5 ML inj 100 MCG EPIDURAL (13:38)
[2024-03-10] MEDS: ROPIVACAINE 0.2% 100 ml 100 ML 12 MG EPIDURAL (13:45)
[2024-03-10] MEDS: LIDOCAINE 2% (PF) 5 ML VIAL EPIDURAL (13:45)
--- NOTE | 2024-03-10 13:55 | P.ANBPRC_ITS ---
[facility] Medical History (Updated 02/25/24 @ 09:26 by Shiloh Simon MD) Right ovarian cyst ?N83.201 - Unspecified ovarian cyst, right side (ICD-10) Sacrococcygeal disorders, not elsewhere classified ?M53.3 - Sacrococcygeal disorders, not elsewhere classified (ICD-10) Irritable bowel syndrome ?K58.9 - Irritable bowel syndrome without diarrhea (ICD-10) Hypertension ?I10 - Essential (primary) hypertension (ICD-10) Hemorrhage of rectum and anus ?K62.5 - Hemorrhage of anus and rectum (ICD-10) Anxiety disorder ?F41.9 - Anxiety disorder, unspecified (ICD-10) Surgical History (Updated 02/25/24 @ 09:26 by Shiloh Simon MD) Status post cholecystectomy ?Z90.49 - Acquired absence of other specified parts of digestive tract (ICD- 10) History of ovarian cystectomy ?Z98.890 - Other specified postprocedural states (ICD-10) ?Z87.42 - Personal history of other diseases of the female genital tract (ICD-10) History of hernia repair ?Z98.890 - Other specified postprocedural states (ICD-10) ?Z87.19 - Personal history of other diseases of the digestive system (ICD-10) History of esophagogastroduodenoscopy (EGD) ?Z98.890 - Other specified postprocedural states (ICD-10) History of colonoscopy ?Z98.890 - Other specified postprocedural states (ICD-10) Family History Mother Breast cancer Hyperlipidemia Mental disorder Diabetes Aunt Breast cancer Myocardial infarction Paternal Grandmother Breast cancer Heart disease Maternal Grandmother Heart disease High blood pressure Myocardial infarction Maternal Grandfather Drug abuse Heart disease Hyperlipidemia High blood pressure Paternal Grandfather Heart disease Father Gout Social History (Updated 02/25/24 @ 09:27 by Shiloh Simon MD) Narrative: History of blood transfusion: no. SOCIAL HISTORY: Lives in [place] with and 8 yo daughter. 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 Marital status: . Jewish/cultural needs: no. Chemical or radiation exposure: no. Pre- tobacco use: no. Pre- alcohol use: no. Current tobacco use: no. Current alcohol use: no. Recreational drug use: no. Dietary restrictions: no. Blood transfusion acceptable in an emergency: yes. What is your current living situation?: I presently have a place to live Problems where you live: no known problems In the past 12 months, utilities in danger of being shut off: no In past 12 months, lack of transportation kept you from medical appts, meetings, work, or getting things needed for daily living: no In the past 12 mos, have been you worried that your food would run out before you had money to buy more?: never true In the past 12 mos, the food you bought just didn't last and you didn't have money to buy more?: never true Smoking Status: Former smoker Do you use any of these nicotine containing products: None Second hand tobacco smoke exposure: No How often do you have a drink containing alcohol: never How often do you have six or more drinks on one occasion: Never AUDIT-C Alcohol total score: 0 Non-prescribed substance use: denies use How often does anyone, including family, friends and others, physically hurt you : never How often does anyone, including family, friends and others, insult or talk down to you: never How often does anyone, including family, friends and others, threaten you with harm: never How often does anyone, including family, friends and others, scream or curse at you: never Little interest or pleasure in doing things: not at all Feeling down, depressed, or hopeless: not at all service: No Meds Home Medications and Allergies Home Medications Medication Instructions Recorded Confirmed Type docosahexaenoic acid 200 mg 200 mg PO DAILY PRN 08/20/23 03/10/24 History capsule ( DHA) aspirin 81 mg tablet,delayed 81 mg PO QDAY 11/15/23 03/10/24 History release ([place] Aspirin) Allergies Allergy/AdvReac Type Severity Reaction Status Date / Time doxycycline Allergy Mild Hives Verified 03/05/24 13:34 Sulfa (Sulfonamide Allergy Hives Verified 03/10/24 05:26 Antibiotics) Results Labs Labs: Laboratory Results - last 24 hr 03/10/24 07:45 WBC 9.67 RBC 4.15 Hgb 12.1 Hct 36.5 MCV 88 MCH 29 MCHC 33 RDW Coeff of Kaushik 13.6 Plt Count 367 Neut % (Auto) 65.7 Lymph % (Auto) 23.0 [place] % (Auto) 7.4 Eos % (Auto) 1.3 Baso % (Auto) 0.2 Neut # (Auto) 6.35 Lymph # (Auto) 2.22 [place] # (Auto) 0.70 Eos # (Auto) 0.13 Baso # (Auto) 0.02 Abs Immat Gran (auto) 0.23 Imm/Tot Granulo (auto) 2.4 Blood Type B Positive Antibody Screen NEGATIVE Vital Signs Vital Signs: Last Vital Signs Temp 98.6 F 03/10/24 11:00 Pulse 96 03/10/24 13:53 Resp 18 03/10/24 12:00 BP 133/87 03/10/24 13:53 Pulse Ox 98 03/10/24 13:51 Weight: 89.358 kg Height: 165.1 cm Anesthesia Procedures Epidural Insertion Patient Location: OB Start Time: :15 Stop Time: 14:15 Start Date: 03/10/24 Stop Date: 03/10/24 Reason for Block: primary anesthetic Patient Position: sitting Performed By: Aguilar Mcdaniel Preanesthetic Checklist: IV checked, risks and benefits discussed, surgical consent, monitors and equipment checked, pre-op evaluation, timeout performed and anesthesia consent Prep: chlorhexidine gluconate Monitoring: blood pressure monitoring, produce laborer, continuous pulse oximetry and heart rate Approach: midline Vertebral Space: lumbar (1-5) Needle Type: Tuohy needle Injection Technique: continuous catheter Needle gauge: 17 Needle Length (cm): 10 cm Needle Insertion Depth (cm): 6 Catheter Gauge: 19 Catheter Type: multi-orifice Catheter at skin depth (cm): 12 Test Dose Result: negative and lidocaine 1.5% with epinephrine 1 to 200,000 Events: other
[2024-03-10] MEDS: LACTATED RINGERS 1000 ML 1,000 ML 1125 ML IV (14:28)
[2024-03-10] MEDS: LOPERAMIDE HCL 2 MG CAPSULE 4 MG PO (15:14)
--- NOTE | 2024-03-10 17:01 | P.OBPN_ITS ---
Subjective Time Seen by Provider: 17:01 Date Seen: 03/10/24 Narrative: Okay Objective Vital Signs: Last Vital Signs Temp 98.6 F 03/10/24 11:00 Pulse 134 H 03/10/24 16:59 Resp 18 03/10/24 12:00 BP 128/61 03/10/24 16:59 Pulse Ox 98 03/10/24 14:06 Pelvic Exam Dilation (cm): 9 Effacement (%): 90 Station: 0 Contractions Monitor mode: External Contraction pattern: Regular Contraction intensity: Strong/Firm Assessment Station: 0 Amniotic Membrane Status: AROM Status: Category l Heart Rate Baseline: 140 Custodial Variability: Moderate (6-25) Monitor Accelerations: Present Monitor Decelerations: Early Maternal Status: Stable Plan Plan: AROM completed at around 1pm today. She was 6cm at that time. She is comfortable with epidural. NST showing some early decelerations. Still some cervix present. Baby palpated OA. I will plan to re check her in 1-2 hours if still undelivered will start some Oxytocin. Plan reviewed with patient and in agreement.
[2024-03-10] MEDS: OXYTOCIN 30 unit/500 ML in NS 30 UNIT/500 ML BAG 300 UNIT IVPB (18:25)
--- NOTE | 2024-03-10 19:53 | W.PM.OBVAGDE ---
OB Procedure Vag Delivery Mother Details Mother Details: The patient is a 38 year-old, 3, Para 2, admitted on 03/10/24 at 39.0Days gestation in early labor for augmentation. : 3 Para: 2 Weeks Gestation: 39.0 Admission Date: 03/10/24 Additional Details Amniotic Membrane Status: AROM Amniotic Membrane Rupture Date: 03/10/24 Amniotic Membrane Rupture Time: 12:35 Amniotic Membrane Fluid Description: Clear Analgesia/Anesthesia Type: Epidural Waterbirth: No Pitcoin: No Intrapartal Events: Labor Augmentation Delivery augmentation: rupture of membranes Labor Onset: 12:35 Complete: 18:02 Pushin:03 Heart: heart tones during second stage were category 1. Delivery Details Delivery Date: 03/10/24 Delivery Time: 18:25 Route of delivery: Infant Gender: Female Viability: Alive; Heart Rate Present Position at Delivery: OA Delivery Details: Delivered over intact perineum via spontaneous vaginal delivery. Infant was placed on maternal abdomen.? Cord was clamped and cut after a 30-60 second delay. Nose and mouth were bulb suctioned.? weight pending. 1 Minute Interval Total Score: 8 5 Minute Interval Total Score: 9 Additional Details Shoulder Dystocia: No Placenta Delivery Time: 18:33 Placental Delivery Description: Spontaneous Procedure Done: Global Blood Loss: 50 Laceration: Periurethral - 1st Degree (Not bleeding, not repaired.) Episiotomy Description: None Blood Loss Measurement Type: QBL Bakri Used: No Sponge/Need Count Correct: Yes Cord Vessel Description: 3 Vessels and Around Body Event Summary Status: Mother and infant were stable after delivery. Disposition: floor
[2024-03-11 04:10] VITALS: BP 117/76; PULSE 81; RESP 16; TEMP 37.2
[2024-03-11 06:46] LABS: Hemoglobin* 10.9 gm/dL (12.0-16.0)
[2024-03-11 08:30] VITALS: BP 117/80; PULSE 82; RESP 16; TEMP 37; O2SAT 98
[2024-03-11] MEDS: DOCUSATE SODIUM 100 MG CAPSULE PO (08:39)
[2024-03-11] MEDS: IBUPROFEN 600 MG TABLET PO (08:39)
--- NOTE | 2024-03-11 08:48 | PM.ANPOST ---
Post Anesthesia Note Post Anesthesia Note Patient seen: Inpatient Respiratory Status: adequate Cardiovascular Status: adequate Mental Status: baseline Pain: adequate Temp: baseline Anesthetic awareness: N/A Complications: none Follow care: none
--- NOTE | 2024-03-11 10:27 | PC.SOCIAL ---
Discharge planning: washtub worker met with pt and provided her with Health Care Directive information per her request. Pt also had questions about WIC in [facility]. washtub worker provided her with WIC information for [facility]. Social work to follow-up to as needed.
[2024-03-11 12:30] VITALS: BP 120/80; PULSE 75; RESP 18; TEMP 37.1; O2SAT 98
[2024-03-11 17:30] VITALS: BP 102/69; PULSE 77; RESP 18; TEMP 36.8; O2SAT 99
--- NOTE | 2024-03-11 23:50 | PM.OBPNVD1 ---
OB - PN:Subj Subjective Date Seen: 03/11/24 Patient comments OB post-: no complaints, pain well controlled, tolerating diet and flatus present [place] status: and doing well [place] feeding status: exclusively Narrative: The patient feels well.? Her pain is well controlled with current medications.? She has no new complaints.? Urinary output is adequate and she is voiding without difficulty.? Has a good appetite, is tolerating a general diet, is passing flatus, and has not had a bowel movement.? Has small amount of rubra lochia.? She is ambulating well.? OB - PN: Obj Exam Physical Exam: Vital signs: Temp Pulse Resp BP Pulse Ox O2 Del Method 98.2 F 77 18 102/69 99 Room Air 03/11/24 17:30 03/11/24 17:30 03/11/24 17:30 03/11/24 17:30 03/11/24 17:30 03/11/24 17:30 Narrative: GENERAL APPEARANCE:? normal affect, alert, no distress? MOOD:? appropriate? CHEST:? clear to auscultation and percussion? HEART:? regular rate and rhythm? ABDOMEN:? soft, non-tender the uterine fundus is U/2 and is appropriate for the stage of recovery.? PERINEUM:? mild edema of the perineum, there is a 1st degree that is healing well.? EXTREMITIES:? normal and no edema? Urinary Catheter Management: Urethral: Cath placed during this visit: no OB - PN: Obj Data Labs Labs: Laboratory Results - last 24 hr 03/11/24 06:30 Hgb 10.9 L OB - PN: A/P Delivery Assessment and Plan (1) AMA (advanced maternal age) multigravida 35+: Status: Acute (2) Lactating mother: Status: Acute (3) care following vaginal delivery: Status: Acute Plan day: 1 Plan: routine care Comments: Anticipate discharge home tomorrow.
[2024-03-12 01:29] LABS: Rapid Plasma Reagin (RPR) Non Reactive (Non Reactive)
--- NOTE | 2024-03-12 07:48 | PM.OBDSVD1 ---
DS: Providers Provider Date Seen: 03/12/24 Date of admission: 03/10/24 06:51 Primary care physician: Veronica Morgan, COKE LOADER, CREATIVE WRITING TEACHER Admitting Clinician: Shaylee Fernandez MD Consults: 03/11/24 00:06 Consult to Tube Drawing Supervisor [CONS] Routine Comment: Reason for Consult:: PT Requests Adv Dir Info Attending Physician on discharge: Lenka Alberts CNM Date of Discharge: 03/12/24 DS: Diagnosis Discharge Diagnosis (1) care following vaginal delivery: Status: Acute (2) Lactating mother: Status: Acute Exam Narrative: Exam Narrative: VSS, afebrile GENERAL APPEARANCE: ?normal affect, alert, no distress MOOD: ?appropriate HEENT: normocephalic, neck supple, full ROM CHEST: ?Symmetrical chest wall movement. ?Normal respiratory effort. ?Clear to auscultation HEART: ?regular rate and rhythm ABDOMEN: ?soft, non-tender. Uterine fundus is firm, at Umbilicus, Midline and is appropriate for the stage of recovery. ?Bowel sounds present. PERINEUM: ?mild edema of the perineum, there is no laceration .EXTREMITIES: ?normal and no edema Const: Vital Signs, click to edit/add: Vital Signs - 24 hr 03/11/24 08:30 03/11/24 12:30 03/11/24 17:30 Temperature 98.6 F 98.7 F 98.2 F Pulse Rate [Left B lood Pressure Cuff ] 82 75 77 Respiratory Rate 16 18 18 Blood Pressure [Le ft Arm] 117/80 120/80 102/69 Pulse Oximetry 98 98 99 Oxygen Delivery Me thod Room Air Room Air Room Air Documenting provider has reviewed patient's vital signs: yes OB - DS: Summary Hospital Course Hospital Course: Antonella is a 38 y.o. who was admitted to [facility] for labor. ?She had an uncomplicated NVD.?The patient feels well. ?The pain is well controlled with current medications. ?She has no new complaints. ?She is breast feeding and reports things are going well.? the patient has done well.? Vitals have been stable.? She has remained afebrile.? Has a good appetite, is tolerating a general diet. ?She is voiding without difficulty.? She is passing gas and has not had a bowel movement.? She is ambulating and denies any dizziness.? Has Small amount of rubra lochia. ?She is planning Mirena IUD for prevention. Peripartum Data delivery method: Vaginal Laceration description: None complications: none [place] Gender: Female Infant Discharge Plan: Home Status at Discharge Functional status at discharge: independent ambulation Overall status at discharge: patient is progressing back to baseline Time Spent with Patient Time attestation: Total time spent providing and/or coordinating discharge services: Time spent: Less than 30 minutes Discharge Plan Discharge Disposition: Home, Self-Care Date of Admission: 03/10/24 06:51 Attending Provider on Discharge: Lenka Alberts Primary Care Provider: Veronica Morgan Condition: Stable Anticipated Discharge Date/Time: 03/12/24 12:00 Discharge Medications: New acetaminophen 500 mg Tablet 1,000 mg PO Q6H PRNQty: 0 0RF docusate sodium 100 mg Capsule 100 mg PO DAILY Qty: 90 2RF ibuprofen 600 mg Tablet 600 mg PO Q6H PRNQty: 60 0RF Continued citalopram 10 mg tablet 10 mg PO DAILY 90 Days Qty: 90 3RF DHA 200 mg capsule 200 mg PO DAILY PRN Discontinued aspirin [[place] Aspirin] 81 mg tablet,delayed release (DR/EC) 81 mg PO QDAY Discharge Orders: Discharge Order (Routine); Ordered 03/12/24 Ordered By: Lenak Alberts Patient Education: OB Over the Counter Medication Information, OB Vaginal/Breast Feeding Additional Instructions: Discharge instructions were reviewed with the patient including signs and symptoms of infection and home going medications Nothing vaginally for 6 weeks: no tampons or intercourse Off Work or School for 6 weeks 2-week visit: discuss infant feeding concerns, review control options and screen for anxiety/depression. 6-week visit for an annual exam. consultation services are available to all mothers and babies for the first year after delivery.? To make an appointment, please call [phone]. Activity Level: Activity as Tolerated Discharge Diet: Regular Follow Up Appointments: [facility] [Provider Group] Forms: [employer] Info Instructions
[2024-03-12 08:07] VITALS: BP 109/69; PULSE 77; RESP 18; TEMP 36.6; O2SAT 97
[2024-03-12] MEDS: DOCUSATE SODIUM 100 MG CAPSULE PO (08:13)
== END 2024-03-12 10:30 | disposition home or self-care (01) | DRG 560 ==
LOC: OB OUT 06:53 → OB 06:53
PROVIDERS: Admitting Provider Obstetrics & Gynecology; PCP Nurse Practitioner Family; Visit Provider Obstetrics & Gynecology
DX: O70.0 First degree perineal laceration during delivery (principal); O99.344 Other mental disorders complicating childbirth; F41.9 Anxiety disorder, unspecified; O99.824 Streptococcus B carrier state complicating childbirth; Z3A.39 39 weeks gestation of pregnancy; Z37.0 Single live birth
CPT/HCPCS: 01967; 36415; 85018; 85025; 86592; 86850; 86900; 86901; A9270; J0290; J2371; J2795; J3010; J7120

== ENCOUNTER 2024-05-21 09:30 | Outpatient (CLI) | payer BC, SELFPAY | END 2024-05-21 09:31 | disposition home or self-care (01) | LOC: KYNREF 09:30 | PROVIDERS: PCP Nurse Practitioner Family; Visit Provider Nurse Practitioner Family | DX: Z01.818 Encounter for other preprocedural examination (principal) | CPT/HCPCS: 80048 ==

== ENCOUNTER 2024-05-28 09:01 | Day surgery (SDC) | payer BC, SELFPAY ==
[2024-05-28] VITALS (14 sets, daily range): BP systolic 109–137; BP diastolic 63–100; PULSE 58–98; RESP 12–16; TEMP 36.2–36.8; O2SAT 97–100; BMI 32.0
--- OUTSIDE RECORDS SUMMARY | 2024-05-28 09:03 | XMS_ITS | Clinical Summary ---
Author Organization [facility] Address [address] [place] [id number] Care Team Providers Care Director [facility] Name Role Phone Veronica Morgan NP Primary [...] Comments Blood Pressure 112/70 10/07/2001 10:20 AM CATTLE SHIPPER Pulse 54 10/07/2001 10:20 AM CATTLE SHIPPER Temperature 36.1 ??C (96.9 ??F) 10/07/2001 10:[address] Respiratory Rate - - Oxygen Saturation - - Inhaled Oxygen Concentration - - Weight 62.1 kg (137 lb) 10/07/2001 10:20 AM CATTLE SHIPPER Height 163.8 cm (5' 4.5) 09/11/2001 9:00 AM CATTLE SHIPPER Body Mass Index - - Plan of [...] GROUP B STREP SCREENING 02/18/2024 INFLUENZA VACCINE (#1) 2024 9, 08/18/2019, 09/12/2018 DTAP/TDAP/TD IMMUNIZATION (5 - Td [...] 60+) (No Doses Required) Completed Care Teams Director [facility] Relationship Specialty Start Date End Date Veronica Morgan NP [address] [address] PCP - General 09/17/23
--- OUTSIDE RECORDS SUMMARY | 2024-05-28 09:03 | XMS_ITS | Referral Summary ---
Author Organization [facility] Address [address] [place] [id number] Care Team Providers Care Home Health Occupational Therapist Name Role Phone Veronica Morgan NP Primary Care Provider [phone] Allergies Active Allergy Reactions Criticality Noted Date [...] Comments Blood Pressure 112/70 10/07/2001 10:20 AM AGRICULTURAL EXTENSION EDUCATOR Pulse 54 10/07/2001 10:20 AM AGRICULTURAL EXTENSION EDUCATOR Temperature 36.1 ??C (96.9 ??F) 10/07/2001 10:[address] Respiratory Rate - - Oxygen Saturation - - Inhaled Oxygen Concentration - - Weight 62.1 kg (137 lb) 10/07/2001 10:20 AM AGRICULTURAL EXTENSION EDUCATOR Height 163.8 cm (5' 4.5) 09/11/2001 9:00 AM AGRICULTURAL EXTENSION EDUCATOR Body Mass Index - - Plan of Treatment Not on file Care Teams Home Health Occupational Therapist Relationship Specialty Start Date End Date Veronica Morgan NP [address] [address] PCP - General 09/17/23
[2024-05-28] MEDS: SODIUM CHLORIDE 0.9 % (FLUSH) 10 ML SYRINGE IVF (09:20)
[2024-05-28] MEDS: LACTATED RINGERS 1000 ML 1,000 ML 100 ML IV (09:20)
[2024-05-28 09:44] LABS: Ur HCG Qualitative* Negative (Negative)
[2024-05-28 09:47] LABS: Hemoglobin* 13.3 gm/dL (12.0-16.0)
--- NOTE | 2024-05-28 09:58 | W.PM.H&PU ---
History & Physical Update History & Physical Update H&P Reviewed and patient assessed: No changes noted
[2024-05-28] MEDS: BUPIVACAINE 0.5 %/EPI 1:200K 30 ML INJECTION (11:00)
--- NOTE | 2024-05-28 11:26 | W.ANESCHARGE ---
Anesthesia Charges Start Date/Time Anesthesia Start Date: 05/28/24 Anesthesia Start Time: 09:51 Stop Date/Time Anesthesia Stop Date: 05/28/24 Anesthesia Stop Time: 11:22
--- NOTE | 2024-05-28 11:37 | PM.GYNPRLA ---
Procedure Pre-op/Post-op diagnoses: Pre-Op/Post-Op Diagnoses Operation Date: 05/28/24 10:00 <No data on this case meets the specified criteria> Procedure: Procedures Operation Date: 05/28/24 10:00 Actual Procedure Side Surgeon p Laparoscopic Bilateral Salpingectomy Bilateral Shaylee Fernandez MD Knitter Mechanic: Marilyn Farah Estimated blood loss (mL): 5 Anesthesia Type: General Complications: none Specimen: other (Bilateral fallopian tubes ) Disposition: same day Narrative: Preoperative diagnosis: 38-year-old who desires permanent sterilization. Postoperative diagnosis: Same. Procedure: Laparoscopic bilateral salpingectomy Urine output: 150 mL clear urine IVF: 1000 ml Specimen: Bilateral fallopian tubes to pathology. Findings: On exam under anesthesia: The uterus was anteverted, 6week size, mobile, without masses or nodularity palpable. Adnexa were without mass or fullness bilaterally. Umbilical hernia noted. On laparoscopy: The uterus, bilateral fallopian tubes and ovaries all appeared normal. Omental adhesions to umbilicus. Filmy bowel adhesions on right pelvic side - unable to visualize appendix. Film bowel adhesions to the left pelvic side wall. Procedure: Patient was taken to the operating room where general anesthetic was found to be adequate. She was placed in the dorsal lithotomy position and an exam under anesthesia was performed with findings stated above. She was then prepped and draped in a normal sterile manner. A Sue catheter was then placed. A bivalve speculum was then placed in the vaginal canal to visualize the cervix. A sponge stick was placed vaginally for manipulation. Attention was then turned to performing the laparoscopic portion of the procedure. All incisions were injected with 0.5% Marcaine prior to incision. A vertical 5 mm infraumbilical, incision, was made and a 5 mm trocar was attempted to placed under direct visualization with the laparoscope. Difficult with entry due to omental adhesions. Decision was made to perform a Jacquelin. Skin incision was extended and a 10 mm port placed after Jacquelin was performed without complication. The abdomen was then insufflated with carbon dioxide gas to a pressure of 15 mm of mercury. To bilateral lower quadrant trocars were then placed under direct visualization. Both were placed approximately 3-4 finger breaths medial to the ischial crests. The right and left were 5 mm ports. A diagnostic laparoscopy was then performed with findings stated above. The left fallopian tube was grasped with a sliding grasper. The left fallopian tube was removed from the broad ligament using the Ligasure dissecting forceps starting at the fimbriated end of the tube. Sequential pedicles were then formed to the level of the cornua. The tube was then removed at the cornua and removed from the abdomen. The right fallopian tube was removed in a similar manner. Excellent hemostasis was noted of all pedicles. The trocars were then removed under direct visualization. The CO2 gas was allowed to escape the infraumbilical port prior to its removal. Umbilical fascial incision was closed with 0-vicryl in a continuos running fashion under direct visualization. All incisions were reapproximated using 4-0 Monocryl in a running subcuticular manner. Exofin skin adhesive was then applied and adhesive dressings applied over each incision. The vaginal manipulator and Sue catheter were removed. The patient tolerated this procedure well. Sponge, lap and instrument counts were correct x2 at the end of the procedure and the patient was taken to the recovery area in stable condition.
[2024-05-28] MEDS: OXYCODONE 5 MG TABLET PO (12:07)
== END 2024-05-28 13:22 | disposition home or self-care (01) ==
LOC: OR 09:02
PROVIDERS: PCP Nurse Practitioner Family; Visit Provider Obstetrics & Gynecology
PROC: (CPT 58661; principal; 2024-05-28 09:45)
DX: Z30.2 Encounter for sterilization (principal)
CPT/HCPCS: 58661; 00840; 36415; 81025; 85018; 86850; 86900; 86901; 88302; A9270; J1100; J1170; J1885; J2250; J2405; J2704; J2710; J3010; J3490; J7120